=== PATIENT | female | born 1995 | race Two or more races ===

== ENCOUNTER 2018-12-15 15:15 | Emergency (ER) | payer BC, MEDICAID ==
[2018-12-15 16:19] LABS: ABS Basophils 0 10^3/ul (0-0.2); ABS Eosinophils 0.1 10^3/ul (0-0.6); ABS Lymphocytes 2.2 10^3/ul (1.0-4.8); ABS Monocytes 0.4 10^3/ul (0-0.8); ABS Neutrophils 6.8 10^3/ul (1.5-7.7); ABS Nucleated RBC 0 10^3/ul; Eosinophil % 1.1 %; Hematocrit 41 % (33-41); Hemoglobin 13.5 g/dL (12.0-16.0); Lymphocyte % 23.4 %; Mean Corpuscular HGB Conc 33 g/dL (31-36); Mean Corpuscular Hemoglobin 30 pg (27-31); Mean Corpuscular Volume 92 fL (80-97); Mean Platelet Volume 9.3 fL (7.4-10.4); Nucleated Red Blood Cells % 0; Platelet Count 269 10^3/uL (150-450); Red Blood Count 4.49 10^6 /uL (3.70-4.87); Red Cell Distribution Width 13 % (10.5-15); White Blood Count 9.6 10^3/uL (3.5-10.8)
[2018-12-15 16:35] LABS: ALT 13 U/L (7-52); AST 16 U/L (13-39); Albumin 4.5 g/dL (3.2-5.2); Albumin/Globulin Ratio 1.4 (1-3); Alkaline Phosphatase 63 U/L (34-104); Anion Gap 4 mmol/L (2-11); Blood Urea Nitrogen 19 mg/dL (6-24); C Reactive Protein 2.82 mg/L (<8.01); CO2 Carbon Dioxide 30 mmol/L (22-32); Calcium 9.4 mg/dL (8.6-10.3); Chloride 106 mmol/L (101-111); EGFR African American 116.2 (>60); EGFR Non-African American 96.1 (>60); Globulin 3.3 g/dL (2-4); Glucose 95 mg/dL (70-100); Sodium 140 mmol/L (135-145); Total Protein 7.8 g/dL (6.4-8.9)
[2018-12-15 16:36] LABS: INR 1.02 (0.82-1.09)
[2018-12-15 16:39] LABS: HCG Pregnancy < 0.60 mIU/mL
--- NOTE | 2018-12-15 17:19 | ED ---
GI/ HPI - HPI Summary HPI Summary: Pt is a 23 y/o female who presents to the ED c/o hematochezia. 4 days ago she began having lower abdominal pain and hematochezia, described as bright red blood with clumps. 2 days ago she began to also have chills and N/V, and also c/o anxiety, sleep disturbance, and intermittent dysuria. She denies any diarrhea or fever. Pain is rated a 7/10 in severity and is made worse with BMs. Pt is having about two BMs per day. She notes that shes had a hx of rectal bleeding due to prior trauma to the area, however this is worse than usual. She denies any recent antibiotic or diet change. - History of Current Complaint Chief Complaint: EDAbdPain Time Seen by Provider: 12/15/18 17:11 Stated Complaint: GI BLEED PER PT Hx Obtained From: Patient Hx Last Menstrual Period: NEXPLANON Onset/Duration: Started Days Ago - 4, Still Present Timing: Constant Current Severity: Moderate Pain Intensity: 7 Location of Pain: Other - lower abdomen Associated Signs and Symptoms: Positive: Nausea, Vomiting, Bright Red Blood w/ Stool, Chills, Abdominal Pain. Negative: Diarrhea, Fever Alleviating Factor(s): Nothing - Allergy/Home Medications Allergies/Adverse Reactions: Allergies Allergy/AdvReac Type Severity Reaction Status Date / Time oxycodone Allergy Altered Verified 12/15/18 16:37 Mental Status PMH/Surg Hx/FS Hx/Imm Hx Endocrine/Hematology History: Denies: Hx Diabetes Cardiovascular History: Reports: Hx Congenital Heart Disease Denies: Hx Hypertension History: Denies: Hx Renal Disease Sensory History: Reports: Hx Contacts or Glasses Opthamlomology History: Reports: Hx Contacts or Glasses Psychiatric History: Reports: Hx Anxiety, Hx Depression, Hx Post Traumatic Stress Disorder, Hx Inpatient Treatment, Other Psychiatric Issues/Disorders - reactive attachment disorder and unspecified mood disorders Denies: Hx Eating Disorder, Hx of Violent Episodes Against Others - Immunization History Date of Tetanus Vaccine: Unk Date of Influenza Vaccine: None Infectious Disease History: No Infectious Disease History: Reports: History Other Infectious Disease - +TB TEST Denies: Traveled Outside the [place] in Last 30 Days - Family History Known Family History: Positive: Unknown - unknown due to adoption - Social History Alcohol Use: Occasionally Hx Substance Use: Yes Substance Use Type: Reports: Marijuana Hx Tobacco Use: Yes Smoking Status (MU): Light Every Day Tobacco Smoker Review of Systems Positive: Chills, Other - sleep disturbance. Negative: Fever Positive: Abdominal Pain, Vomiting, Nausea, Other - hematochezia. Negative: Diarrhea Positive: dysuria - intermittent Positive: Anxious All Other Systems Reviewed And Are Negative: Yes Physical Exam - Summary Physical Exam Summary: Appearance: well appearing, no pain distress Skin: warm, dry, reflects adequate perfusion Head/face: normal Eyes: EOMI, VIDYA ENT: mucous membranes moist Neck: supple, non-tender Respiratory: CTA, breath sounds present Cardiovascular: RRR, pulses symmetrical Abdomen: diffuse tenderness, soft Bowel Sounds: present Musculoskeletal: normal, strength/ROM intact Neuro: normal, sensory motor intact, A&Ox3 Rectal: small external hemorrhoid on 12 oclock position with adjacent fissure Triage Information Reviewed: Yes Vital Signs On Initial Exam: Initial Vitals Temp Pulse Resp BP Pulse Ox 97.2 F 79 18 145/70 99 12/15/18 15:23 12/15/18 15:23 12/15/18 15:23 12/15/18 15:23 12/15/18 15:23 Vital Signs Reviewed: Yes Diagnostics - Vital Signs Vital Signs Temp Pulse Resp BP Pulse Ox 12/15/18 16:34 98.5 F 89 18 103/80 99 12/15/18 15:23 97.2 F 79 18 145/70 99 - Laboratory Lab Results: Lab Results 12/15/18 12/15/18 12/15/18 Range/Units 15:48 15:48 15:48 WBC 9.6 (3.5-10.8) 10^3/uL RBC 4.49 (3.70-4.87) 10^6 /uL Hgb 13.5 (12.0-16.0) g/dL Hct 41 (33-41) % MCV 92 (80-97) fL MCH 30 (27-31) pg MCHC 33 (31-36) g/dL RDW 13 (10.5-15) % Plt Count 269 (150-450) 10^3/uL MPV 9.3 (7.4-10.4) fL Neut % (Auto) 70.5 % Lymph % (Auto) 23.4 % [place] % (Auto) 4.7 % Eos % (Auto) 1.1 % Baso % (Auto) 0.3 % Absolute Neuts (auto) 6.8 (1.5-7.7) 10^3/ul Absolute Lymphs (auto) 2.2 (1.0-4.8) 10^3/ul Absolute Monos (auto) 0.4 (0-0.8) 10^3/ul Absolute Eos (auto) 0.1 (0-0.6) 10^3/ul Absolute Basos (auto) 0 (0-0.2) 10^3/ul Absolute Nucleated RBC 0 10^3/ul Nucleated RBC % 0 INR (Anticoag Therapy) (0.82-1.09) Sodium 140 (135-145) mmol/L Potassium 4.0 (3.5-5.0) mmol/L Chloride 106 (101-111) mmol/L Carbon Dioxide 30 (22-32) mmol/L Anion Gap 4 (2-11) mmol/L BUN 19 (6-24) mg/dL Creatinine 0.76 (0.51-0.95) mg/dL Est GFR ( Amer) 116.2 (>60) Est GFR (Non-Af Amer) 96.1 (>60) BUN/Creatinine Ratio 25.0 H (8-20) Glucose 95 (70-100) mg/dL Lactic Acid 0.4 L (0.5-2.0) mmol/L Calcium 9.4 (8.6-10.3) mg/dL Total Bilirubin 0.40 (0.2-1.0) mg/dL AST 16 (13-39) U/L ALT 13 (7-52) U/L Alkaline Phosphatase 63 (34-104) U/L C-Reactive Protein 2.82 (<8.01) mg/L Total Protein 7.8 (6.4-8.9) g/dL Albumin 4.5 (3.2-5.2) g/dL Globulin 3.3 (2-4) g/dL Albumin/Globulin Ratio 1.4 (1-3) Lipase 13 (11.0-82.0) U/L Beta HCG, Quant < 0.60 mIU/mL 12/15/18 Range/Units 15:48 WBC (3.5-10.8) 10^3/uL RBC (3.70-4.87) 10^6 /uL Hgb (12.0-16.0) g/dL Hct (33-41) % MCV (80-97) fL MCH (27-31) pg MCHC (31-36) g/dL RDW (10.5-15) % Plt Count (150-450) 10^3/uL MPV (7.4-10.4) fL Neut % (Auto) % Lymph % (Auto) % [place] % (Auto) % Eos % (Auto) % Baso % (Auto) % Absolute Neuts (auto) (1.5-7.7) 10^3/ul Absolute Lymphs (auto) (1.0-4.8) 10^3/ul Absolute Monos (auto) (0-0.8) 10^3/ul Absolute Eos (auto) (0-0.6) 10^3/ul Absolute Basos (auto) (0-0.2) 10^3/ul Absolute Nucleated RBC 10^3/ul Nucleated RBC % INR (Anticoag Therapy) 1.02 (0.82-1.09) Sodium (135-145) mmol/L Potassium (3.5-5.0) mmol/L Chloride (101-111) mmol/L Carbon Dioxide (22-32) mmol/L Anion Gap (2-11) mmol/L BUN (6-24) mg/dL Creatinine (0.51-0.95) mg/dL Est GFR ( Amer) (>60) Est GFR (Non-Af Amer) (>60) BUN/Creatinine Ratio (8-20) Glucose (70-100) mg/dL Lactic Acid (0.5-2.0) mmol/L Calcium (8.6-10.3) mg/dL Total Bilirubin (0.2-1.0) mg/dL AST (13-39) U/L ALT (7-52) U/L Alkaline Phosphatase (34-104) U/L C-Reactive Protein (<8.01) mg/L Total Protein (6.4-8.9) g/dL Albumin (3.2-5.2) g/dL Globulin (2-4) g/dL Albumin/Globulin Ratio (1-3) Lipase (11.0-82.0) U/L Beta HCG, Quant mIU/mL Result Diagrams: 12/15/18 15:48 12/15/18 15:48 Lab Statement: Any lab studies that have been ordered have been reviewed, and results considered in the medical decision making process. GIGU Course/Dx - Course Course Of Treatment: Patient with a small amount of hematochezia. She has a anal fissure seen on exam as well as a small noninflamed hemorrhoid. The hemorrhoid doesn't look like it bled. There is no focality to her abdominal exam but has generalized mild tenderness. There is no pain in the right lower quadrant. Her laboratories are entirely benign. She was given Anusol and lidocaine jelly for discomfort. She'll follow up with her primary care physician for reevaluation as the symptoms could be potentially caused by IBD. - Diagnoses Differential Diagnoses - Female: Other - Gastroenteritis, rectal fissure, external/internal hemorrhoid, IBD Provider Diagnoses: Rectal bleeding, Anal fissure Discharge - Sign-Out/Discharge Documenting (check all that apply): Patient Departure - Discharge Patient Received Moderate/Deep Sedation with Procedure: No - Discharge Plan Condition: Improved Disposition: HOME Prescriptions: Hydrocortisone SUPP* [Anusol HC Supp*] 25 mg IA BID #10 supp Lidocaine 2% JELLY* 1 applic TOPICAL TID PRN #1 tube PRN Reason: rectal pain Patient Education Materials: Anal Fissure (ED) Forms: *Work Release Referrals: Denise Gaitan [Primary Care Provider] - Additional Instructions: Call in the Morning to schedule follow-up with her primary care physician. Anal fissures if recurrent can be a sign of more chronic GI conditions such as Crohn's disease or colitis. Have your doctor do further testing. Return if worse, new symptoms or other concerns. - Billing Disposition and Condition Condition: IMPROVED Disposition: Home - Attestation Statements Document Initiated by Scribe: Yes Documenting Scribe: Dana Cano Provider For Whom Treva is Documenting (Include Credential): Raiz De MD Scribe Attestation: Dana Barron, scribed for Riaz De MD on 12/15/18 at 1901. Scribe Documentation Reviewed: Yes Provider Attestation: The documentation as recorded by the Dana tolentino accurately reflects the service I personally performed and the decisions made by me, Riaz De MD Status of Scribe Document: Viewed
[2018-12-15 17:26] LABS: Urine Appearance Clear; Urine Bacteria Absent (Absent); Urine Bilirubin Negative (Negative); Urine Blood Negative (Negative); Urine Color Yellow; Urine Glucose Negative (Negative); Urine Ketones Negative (Negative); Urine Nitrite Negative (Negative); Urine Protein Negative (Negative); Urine Red Blood Cell Trace(0-2/hpf) (Absent); Urine Specific Gravity 1.028 (1.010-1.030); Urine Squamous Epithelial Cell Present (Absent); Urine Urobilinogen Negative (Negative); Urine White Blood Cell Trace(0-5/hpf) (Absent)
[2018-12-15 17:34] VITALS: BP 127/84
== END 2018-12-15 17:50 | disposition home or self-care (01) ==
LOC: ED 15:15
DX: K62.5 Hemorrhage of anus and rectum (principal); K60.2 Anal fissure, unspecified; Q24.9 Congenital malformation of heart, unspecified; F41.9 Anxiety disorder, unspecified; F32.9 Major depressive disorder, single episode, unspecified; F43.12 Post-traumatic stress disorder, chronic; F17.210 Nicotine dependence, cigarettes, uncomplicated; Z88.5 Allergy status to narcotic agent
CPT/HCPCS: 36415; 80053; 81003; 81015; 83605; 83690; 84702; 85025; 85610; 86140; 87086; 99282

== ENCOUNTER 2019-03-21 13:16 | Emergency (ER) | payer BC, MEDICAID ==
--- OUTSIDE RECORDS SUMMARY | 2019-03-21 13:23 | XMS REPORT | Continuity of Care Document ---
:1995 External Reference #:[id number] Author Name Ton Ray D.O. Address [address] [place] [id number] Care Team Providers Name Role Phone Ton Ray D.O. 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 Onset: 03/09/2013 Slow transit constipation Denise Apodaca PA Onset: 03/13/2016 Family History Date Family Member(s) Observation Comments Father Diabetes, Nos Father Stroke Father Asthma Mother Asthma Mother Diabetes, Nos Number of Siblings 1 sister First Brother Asthma Social History Type Date Description Comments Sex Unknown Home Environment Lives in a 2 level home and lives in a new house. Uses forced air, natural gas and wood heating. Has a window air conditioner. The floors are carpeted and wood. There are draperies in the home. Does not use air cleanersuses humidifier in winter Diet Diet is healthy and well balanced Sleep Typically sleeps 10 hours a night Pets Household pets include several dogs Abuse Mother States Past HX Tobacco Use Start: Unknown current cigarette smoker also vapes Tobacco Use Reviewed: 03/13/16 Patient has never smoked Recreational Drug Use Denies Drug Use Smoking Status Reviewed: 03/13/16 Patient has never smoked Exercise Type/Frequency Child Does Play School Current Sports Sun Exposure Minimum amount of sun exposure. Uses sunscreen Seat Belt/Car Seat Always uses a seat belt Bike Helmet Patient always wears a bike helmet Guns in Home There are guns in the home and the guns are locked up Smoke Alarms There are smoke alarms in the house Recent Travel There has not been recent travel abroad Currently Active The patient is currently sexually active Father's Occupation Entry Rep Mother's Occupation [employer] R[employer] Oncology Child Social Hx biological fa unknown Child Social Hx biological mo hx unknown Allergies, Adverse Reactions, Alerts Active Allergies Reaction Severity Comments Date Oxycodone Percocet 03/13/2016 Inactive Allergies NKDA 09/19/2005 NKDA 03/13/2016 Medications Active Medications SIG Qnty Indications Ordering Date Provider Amoxicillin 1 three times a day 30tabs Silco, 08/08/2018 500mg a day x 10 days for Sally Chang Tablets pharyngitis Triamcinolone apply thin layer to 30gm Silco, 07/04/2018 Acetonide rash 2-3 times a Sally Chang 0.5% Cream day Nexplanon Unknown 68mg Implant History Medications Valacyclovir HCL 1 three times a day 21tabs Silco, 07/04/2018 - for 7 days for rash Sally Chang 07/19/2018 1gm Tablets Fluconazole 1 tabs by mouth one 1tabs B37.3 Silcoff, 12/30/2017 - 150mg time Sally Chang 12/31/2017 Tablets Escitalopram 1 tab every morning 60tabs F43.21 Silco, 12/30/2017 - Oxalate for depression x 3 Sally Chang 06/29/2018 5mg Tablets days, if tolerating, increase to two tabs in the morning Plan B One-Step one 0.75 mg tablet 2tabs N92.6 Silco, 12/09/2017 - w/n 72 hours of Sally Chang 12/16/2017 1.5mg Tablets unprotected sexual intercourse; second 0.75 mg tablet 12 hours later Ondansetron HCL 1 three times a day, 6tabs Silcoff, 12/09/2017 - 4mg as needed for severe Sally Chang 12/29/2017 Tablets nausea Metronidazole 1 bid x 7 days 14tabs N92.6 Silcojaiden, 12/09/2017 - 500mg Sally Chang 12/29/2017 Tablets Doxycycline Hyclate 1 twice a day x 14 28tabs N92.6 Silcoff, 12/09/2017 - days Sally Chang 12/29/2017 100mg Tablets Metrogel-Vaginal 1 applicatorful by 70gm N76.0 Kaleb, 08/27/2017 - way of vagina every Sally Chang 12/08/2017 0.75% Gel night at bedtime x5 days Omeprazole 1 by mouth every day 30caps K21.9 Kaleb, 07/08/2017 - 20mg Sally Chang 08/26/[address] Flora take 1 tablet by 14tabs N76.0 Denise Apodaca, 02/25/2017 - 500mg mouth two times a PA 03/04/2017 Tablets day for 7 days Meclizine HCL 1 tab by mouth three 90tabs R42 Denise Apodaca, 02/25/2017 - 25mg times a day as PA 12/09/2017 Tablets needed dizziness Metrogel-Vaginal 1 applicatorful by 70gm Denise Apodaca, 02/04/2017 - way of vagina every PA 02/04/2017 0.75% Gel night at bedtime x5 days Fluconazole 1 tab by mouth once 1tabs N76.0 Denise Apodaca, 01/30/2017 - 150mg for yeast infection PA 02/01/2017 Tablets Amoxicillin 2 cap by mouth twice 40caps J02.9 Cory, 09/27/2016 - 500mg a day x 10 days Ton D.OCamilla 10/07/2016 Capsules Amoxicillin 1 tab by mouth twice 20tabs J02.0 Denise Apodaca, 05/22/2016 - 875mg a day x10 days PA 06/01/2016 Tablets No Active Unknown 03/13/2016 - Medications 03/13/2016 Colace 1 cap by mouth twice 60caps K64.5 Denise Apodaca, 03/13/2016 - 100mg a day PA 01/29/2017 Capsules Proctosol HC apply to hemorrhoids 28.350gm K64.5 Denise Apodaca, 2015 - 2.5% twice a day as PA 01/29/2017 Cream needed Amoxicillin 2 tab po bid x 10d 40tabs 381.4 Kaleb, 09/08/2013 - 500mg Sally Chang 09/18/2013 Tablets Flonase 1-2 intranasal 1units 461.0 Marquisdianna, 03/09/2013 - 50mcg/Act Ton D.OCamilla 08/19/2013 Suspension Depo-Provera Please dispense for 1ml Herve Dietrich 02/13/2013 - Contraceptive administration at Sally Durham 09/21/2014 dfm 150mg/ml Suspension Cephalexin 1 po bid x7 days 14tabs 682.8 Kaleb, 05/01/2012 - 500mg Sally Chang 05/14/2012 Tablets Polyethylene Glycol use 1 cap full in 8 527gm 564.01 Herve Dietrich 2011 - 3350 oz of water every Sally Durham 06/29/2012 3350NF Powder day; may increase to 2 caps as needed Lexapro 1 qd samplesgi Unknown 09/28/2011 - 10mg 09/28/2012 Tablets Cephalexin 1 tablet bid x 7 14caps 681.11 Kaleb, 03/30/2011 - 500mg days Sally Chang 04/06/2011 Capsules Abilify 1 qd 296.99 Unknown 03/29/2011 - 10mg 03/29/2012 Tablets Anusol-HC apply to affected 45gm 565.0 Herve Dietrich 11/05/2010 - 2.5% area tid for ten Sally Durham 12/05/2010 Cream days Naftin apply to area bid 15gm 110.5 Herve Dietrich 06/01/2010 - 1% Cream for 2 weeks Sally Durham 03/31/2012 Concerta 314.00 Unknown 02/10/2009 - 18mg 03/22/2010 Tablets ER Tenex 1/2 in am and 1 in Unknown 02/10/2009 - 1mg Tablets pm 03/21/2010 Multivitamins 1 po qd V20.2 Herve Dietrich 02/10/2009 - Sally Durham 01/20/2012 Tablets Concerta 1 qam 90tabs 314.00 Herve Dietrich 08/15/2008 - 27mg Sally Durham 02/10/2009 Tablets ER code a Concerta 1 qam 90tabs 314.00 Herve Dietrich 07/11/2008 - 36mg Sally Durham 08/15/2008 Tablets ER code b Risperdal O.25 qam and 0.25 QS3Mos 314.00 Herve Dietrich 12/28/2007 - 1mg/ml qpm Sally Durham 09/05/2008 Solution 312.9 Concerta 1 qam 90tabs 314.00 Herve Dietrich 11/30/2007 - 27mg Tablets ER Sally Durham 07/11/2008 code A Concerta 1 qam 30tabs 314.00 Herve Dietrich 11/06/2007 - 27mg Tablets ER Sally Durham 11/30/2007 code A Concerta 1 qd 30tabs 314.00 Herve Dietrich 10/13/2007 - 18mg Tablets ER Sally Durham 11/06/2007 Hydrocortisone Apply To 15gm 782.1 Herve Dietrich 10/13/2007 - 1% Cream Affected Area Sally Durham 10/29/2007 bid Zithromax day one; 9 ml po carlos 11/10/2006 - 200mg/5 ML 02/17/2007 Suspension day two-five 4.5 ml po q day #qs for 5 days Flovent puffs bid 1units 493.10 carlos 11/08/2006 - 110McG/Inhalation 02/09/2009 Aerosol Albuterol Mdi 2 puffs q 4 hrs 1units 493.10 carlos 11/08/2006 - 90McG/Dose prn for SOB 02/09/2009 Aerosol Peak Flow Meter Use First Thing 2units 493.00 Herve Dietrich 03/11/2006 - In Am And prn To Sally Durham 03/31/2012 Monitor Breathing Colace 1 po q day 60caps 455.3 Herve Dietrich 01/15/2006 - 50mg Capsules Sally Durham 06/18/2007 School Note please allow 493.00 carlos 01/15/2006 - patient to 03/01/2006 return to pe and sports Advair Diskus 1 puff bid prn 1units 493.00 Herve Dietrich 01/09/2006 - only Sally Durham 03/18/2006 500mcg;50mcg Inhaler Albuterol Mdi 2 puffs q 4 hrs 2units 493.00 carlos 01/09/2006 - 90mcg/Dose prn for SOB 03/19/2006 Aerosol 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 Amoxicillin 3 taken one hour 30tabs 745.61 Herve Dietrich 11/01/2005 - 500mg Tablets before dental Sally Durham 11/21/2005 care Bike Helmet please wear one V20.2 Herve Dietrich 09/19/2005 - every time you Sally Durham 09/23/2006 use your bike Risperdal bid 314.00 Herve Dietrich - 0.25mg Tablets Sally Durham 06/23/2007 Fluoride 1 po qd 90units V20.2 Unknown - 0.5mg Chewtabs 03/22/2010 Abilify 2 tablets po Unknown - 10mg Tablets every other day 03/22/2010 Concerta 2 po qam 314.00 Unknown - 36mg Tablets ER 01/21/2012 Lexapro 1 tab by mouth 30tabs Denise Apodaca, - 20mg Tablets every day PA 01/29/2017 Medications Administered in Office Medication SIG Qnty Indications Ordering Provider Date SC/Im Injections Nurse's Schedule 12/31/2013 Injection SC/Im Injections Herve Durham M.D. 09/27/2013 Injection SC/Im Injections Nurse's Schedule 06/28/2013 Injection SC/Im Injections Nurse's Schedule 12/01/2012 Injection SC/Im Injections Nurse's Schedule 09/02/2012 Injection SC/Im Injections Nurse's Schedule 04/23/2012 Injection H1N1 Swine Flu Vaccine Nurse's Schedule 08/16/2009 Injection Immunizations CPT Code Status Date Vaccine Lot # [id number] Given 07/20/2018 Influenza Virus Vaccine, Quadrivalent, Split, [id number] Preservative Free 28864 Given 05/28/2017 Influenza Virus Vaccine, Quadrivalent, Split, [id number] Preservative Free 89332 Given 06/28/2013 Flu, Split Virus 3Yrs [id number] 53449 Given 04/01/2013 Menactra Menningitis Vaccine [id number] 92733 Given 04/23/2012 Flu, Split Virus 3Yrs [id number] 06519 Given 09/30/2011 Hep A, Ped/Adolscent, 2 Dose [id number] 72577 Given 06/06/2011 Flu, Split Virus 3Yrs [id number] 29911 Given 03/30/2011 Hep A, Adult [id number] 00259 Given 06/01/2010 Flu, Split Virus 3Yrs [id number] 65052 Given 08/16/2009 Flu, Split Virus 3Yrs [id number] 38126 Given 05/05/2009 Gardasil HPV vaccine [id number] 81365 Given 05/05/2009 Varicella (Chicken Pox) Immunization [id number] 97780 Given 01/06/2009 Gardasil HPV vaccine [id number] 88320 Given 06/13/2008 Flu, Split Virus 3Yrs [id number] 85447 Given 03/21/2008 Menactra Menningitis Vaccine [id number] 35677 Given 03/21/2008 Gardasil HPV vaccine [id number] 22496 Given 12/28/2007 Adacel or Boostrix, TDaP [id number] 97779 Given 06/23/2007 Flu, Split Virus 3Yrs 98003 Given 07/07/2006 Flu, Split Virus 3Yrs 86607 Given 08/20/2004 Flu, Split Virus 3Yrs 79301 Given 06/08/2003 Flu, Split Virus 3Yrs 58498 Given 10/18/2002 Flu, Split Virus 3Yrs 68104 Given 09/01/2002 Flu, Split Virus 3Yrs 64165 Given 02/24/2002 Poliomyelitis Immunization 32342 Given 02/24/2002 MMR Virus Immunization 18443 Given 02/24/2002 Dtap Immunization (Tripedia) (Infanrix) 31976 Given 11/07/2000 Prevnar (Pneumococcal Conjugate) 16918 Given 05/01/1998 Hepatitis B Immunization 10461 Given 05/01/1998 Dtap Immunization (Tripedia) (Infanrix) 61780 Given 05/01/1998 Hib,HbOC,4 Dose Schedule 22979 Given 02/06/1998 Varicella (Chicken Pox) Immunization 15073 Given 02/06/1998 MMR Virus Immunization 54894 Given 1997 Hib,HbOC,4 Dose Schedule 45558 Given 1997 Dtap Immunization (Tripedia) (Infanrix) 93099 Given 1997 Oral Poliovirus Immunization 43097 Given 1997 Oral Poliovirus Immunization 11716 Given 1997 Dtap Immunization (Tripedia) (Infanrix) 92373 Given 1997 Hib,HbOC,4 Dose Schedule 22754 Given 1997 Hepatitis B Immunization 91693 Given 1997 Oral Poliovirus Immunization 98744 Given 1997 Dtap Immunization (Tripedia) (Infanrix) 91899 Given 1997 Hib,HbOC,4 Dose Schedule 91513 Given 1997 Hepatitis B Immunization Vital Signs Date Vital Result Comment 08/08/2018 10:19am BP Systolic 108 mmHg BP Diastolic 70 mmHg Body Temperature 98.9 F 07/20/2018 3:33pm BP Systolic 110 mmHg BP Diastolic 60 mmHg Heart Rate 86 /min O2 % BldC Oximetry 97 % Weight 216.00 lb 06/29/2018 1:30pm BP Systolic 110 mmHg BP Diastolic 60 mmHg Height 62 inches Weight 210.00 lb BMI (Body Mass Index) 38.4 kg/m2 12/30/2017 11:23am BP Systolic 114 mmHg BP Diastolic 62 mmHg Weight 210.00 lb 12/09/2017 4:36pm BP Systolic 120 mmHg BP Diastolic 68 mmHg Body Temperature 98.5 F Height 62 inches 5'2" with sneakers Weight 206.00 lb with sneakers BMI (Body Mass Index) 37.7 kg/m2 08/27/2017 4:40pm BP Systolic 102 mmHg BP Diastolic 60 mmHg Body Temperature 98.8 F Weight 213.00 lb 07/08/2017 2:09pm BP Systolic 97 mmHg BP Diastolic 40 mmHg Heart Rate 76 /min Body Temperature 98.0 F 06/26/2017 3:32pm BP Systolic 116 mmHg BP Diastolic 58 mmHg Body Temperature 98.7 F Weight 209.00 lb 05/28/2017 3:53pm BP Systolic 116 mmHg BP Diastolic 70 mmHg 04/25/2017 12:04pm Body Temperature 98.6 F 02/25/2017 1:54pm BP Systolic 102 mmHg BP Diastolic 60 mmHg Body Temperature 98.5 F Height 62 inches 5'2" Weight 204.00 lb BMI (Body Mass Index) 37.3 kg/m2 01/30/2017 4:24pm BP Systolic 110 mmHg BP Diastolic 60 mmHg Weight 209.00 lb with shoes 09/27/2016 12:37pm BP Systolic 104 mmHg right arm BP Diastolic 60 mmHg right arm Body Temperature 100.1 F 05/22/2016 5:27pm BP Systolic 118 mmHg BP Diastolic 62 mmHg Heart Rate 100 /min Weight 190.00 lb 03/13/2016 11:07am BP Systolic 110 mmHg BP Diastolic 62 mmHg Height 62 inches 5'2" Weight 182.00 lb w/shoes BMI (Body Mass Index) 33.3 kg/m2 09/27/2013 3:38pm BP Systolic 122 mmHg BP Diastolic 68 mmHg Height 63 inches 5'3" W/Shoes Weight 183.00 lb BMI (Body Mass Index) 32.4 kg/m2 Body Mass Index Percentile 97 % 09/08/2013 9:49am BP Systolic 110 mmHg BP Diastolic 58 mmHg Body Temperature 99.4 F Weight 180.00 lb 04/01/2013 2:02pm BP Systolic 98 mmHg BP Diastolic 54 mmHg Heart Rate 80 /min Respiratory Rate 17 /min Height 62 inches 5'2" Weight 172.00 lb BMI (Body Mass Index) 31.5 kg/m2 Body Mass Index Percentile 97 % 03/09/2013 9:49am BP Systolic 112 mmHg BP Diastolic 76 mmHg Body Temperature 98.6 F Height 62.5 inches 5'2.50" Weight 177.00 lb BMI (Body Mass Index) 31.9 kg/m2 Body Mass Index Percentile 97 % 09/21/2012 4:30pm BP Systolic 100 mmHg BP Diastolic 70 mmHg Body Temperature 98.4 F 09/02/2012 5:40pm BP Systolic 114 mmHg BP Diastolic 63 mmHg Height 62.50 inches 5'2.50" Weight 171.00 lb BMI (Body Mass Index) 30.8 kg/m2 Body Mass Index Percentile 96 % 05/18/2012 3:47pm BP Systolic 100 mmHg BP Diastolic 60 mmHg 05/06/2012 1:41pm BP Systolic 110 mmHg BP Diastolic 54 mmHg Heart Rate 75 /min Body Temperature 98.2 F 05/01/2012 4:02pm BP Systolic 104 mmHg BP Diastolic 61 mmHg Heart Rate 85 /min Body Temperature 98.6 F Weight 154.00 lb Last Menstrual Period 0 04/23/2012 5:00pm BP Systolic 108 mmHg BP Diastolic 78 mmHg Weight 152.00 lb 03/31/2012 3:07pm BP Systolic 110 mmHg BP Diastolic 70 mmHg Height 62.50 inches 5'2.50" Weight 153.00 lb BMI (Body Mass Index) 27.5 kg/m2 Body Mass Index Percentile 94 % 02/25/2012 4:41pm BP Systolic 118 mmHg BP Diastolic 72 mmHg Body Temperature 98.7 F Weight 151.00 lb Last Menstrual Period 0 01/23/2012 4:04pm BP Systolic 104 mmHg BP Diastolic 52 mmHg Heart Rate 75 /min Height 62 inches 5'2" Weight 142.00 lb BMI (Body Mass Index) 26.0 kg/m2 Last Menstrual Period 0 Body Mass Index Percentile 91 % 09/30/2011 4:08pm BP Systolic 108 mmHg BP Diastolic 60 mmHg Heart Rate 80 /min Respiratory Rate 16 /min Height 62.5 inches 5'2.50" Weight 132.00 lb BMI (Body Mass Index) 23.8 kg/m2 Body Mass Index Percentile 84 % 08/29/2011 3:33pm BP Systolic 96 mmHg BP Diastolic 60 mmHg 08/23/2011 2:46pm BP Systolic 110 mmHg BP Diastolic 54 mmHg Weight 129.00 lb 03/30/2011 9:11am BP Systolic 97 mmHg BP Diastolic 81 mmHg Heart Rate 95 /min Height 62 inches 5'2" Weight 132.00 lb BMI (Body Mass Index) 24.1 kg/m2 Body Mass Index Percentile 87 % 11/05/2010 4:45pm BP Systolic 114 mmHg BP Diastolic 66 mmHg Body Temperature 98.5 F Height 61.50 inches 5'1.50" Weight 118.00 lb BMI (Body Mass Index) 21.9 kg/m2 Last Menstrual Period 0 Body Mass Index Percentile 78 % 08/16/2010 9:52am BP Systolic 112 mmHg BP Diastolic 58 mmHg Heart Rate 90 /min Height 62 inches 5'2" Weight 123.00 lb BMI (Body Mass Index) 22.5 kg/m2 Last Menstrual Period [id number] Body Mass Index Percentile 82 % 03/22/2010 3:24pm BP Systolic 118 mmHg BP Diastolic 56 mmHg Heart Rate 80 /min Respiratory Rate 16 /min Height 60.75 inches 5'0.75" Weight 110.00 lb BMI (Body Mass Index) 21.0 kg/m2 Last Menstrual Period 0 Body Mass Index Percentile 74 % 05/20/2009 11:16am Body Temperature 98.5 F Weight 108.00 lb 02/10/2009 9:26am BP Systolic 94 mmHg BP Diastolic 52 mmHg Heart Rate 80 /min Respiratory Rate 17 /min Height 59.50 inches 4'11.50" Weight 103.00 lb BMI (Body Mass Index) 20.5 kg/m2 Body Mass Index Percentile 79 % 10/06/2008 1:12pm BP Systolic 118 mmHg BP Diastolic 64 mmHg Heart Rate 70 /min Respiratory Rate 16 /min Height 58 inches 4'10" Weight 110.00 lb BMI (Body Mass Index) 23.0 kg/m2 Last Menstrual Period 0 Body Mass Index Percentile 95 % 10/06/2008 1:12pm BP Systolic 118 mmHg BP Diastolic 64 mmHg Height 58 inches 4'10" Weight 110.00 lb BMI (Body Mass Index) 23.0 kg/m2 Last Menstrual Period 0 Body Mass Index Percentile 95 % 06/13/2008 4:01pm BP Systolic 112 mmHg BP Diastolic 60 mmHg Height 57 inches 4'9" Weight 106.00 lb BMI (Body Mass Index) 22.9 kg/m2 Last Menstrual Period 0 Body Mass Index Percentile 96 % 03/21/2008 1:13pm BP Systolic 106 mmHg BP Diastolic 48 mmHg Heart Rate 80 /min Respiratory Rate 16 /min Height 56.9 inches 4'8.90" Weight 102.00 lb BMI (Body Mass Index) 22.1 kg/m2 Last Menstrual Period 0 Body Mass Index Percentile 94 % 12/28/2007 3:40pm BP Systolic 106 mmHg BP Diastolic 62 mmHg Heart Rate 70 /min Respiratory Rate 16 /min Height 55.9 inches 4'7.90" Weight 101.00 lb BMI (Body Mass Index) 22.7 kg/m2 Last Menstrual Period 0 Body Mass Index Percentile 97 % 11/06/2007 10:16am BP Systolic 110 mmHg BP Diastolic 58 mmHg Heart Rate 70 /min Height 55.6 inches 4'7.60" Weight 98.00 lb BMI (Body Mass Index) 22.3 kg/m2 Last Menstrual Period 0 Body Mass Index Percentile 97 % 10/13/2007 2:55pm BP Systolic 104 mmHg BP Diastolic 54 mmHg Height 56 inches 4'8" Weight 102.00 lb BMI (Body Mass Index) 22.9 kg/m2 Body Mass Index Percentile 97 % 09/14/2007 9:08am BP Systolic 108 mmHg BP Diastolic 60 mmHg Height 55.6 inches 4'7.60" Weight 99.00 lb BMI (Body Mass Index) 22.5 kg/m2 Last Menstrual Period 0 Body Mass Index Percentile 97 % 06/23/2007 4:13pm BP Systolic 110 mmHg BP Diastolic 60 mmHg Height 54.9 inches 4'6.90" Weight 93.00 lb BMI (Body Mass Index) 21.7 kg/m2 Last Menstrual Period 0 Body Mass Index Percentile 95 % 04/09/2007 1:29pm BP Systolic 100 mmHg BP Diastolic 58 mmHg Heart Rate 80 /min Respiratory Rate 16 /min Height 54.6 inches 4'6.60" Weight 90.00 lb BMI (Body Mass Index) 21.2 kg/m2 Body Mass Index Percentile 94 % 02/07/2007 10:35am BP Systolic 88 mmHg BP Diastolic 50 mmHg Body Temperature 98.6 F Height 53.5 inches 4'5.50" Weight 87.00 lb BMI (Body Mass Index) 21.4 kg/m2 Body Mass Index Percentile 95 % 11/08/2006 11:16am BP Systolic 90 mmHg BP Diastolic 60 mmHg Body Temperature 98.3 F Weight 85.00 lb 09/23/2006 1:41pm Height 53 inches 4'5" Weight 85.00 lb BMI (Body Mass Index) 21.3 kg/m2 Last Menstrual Period 0 Body Mass Index Percentile 95 % 03/11/2006 1:46pm BP Systolic 90 mmHg BP Diastolic 62 mmHg Respiratory Rate 16 /min Weight 76.00 lb 03/01/2006 10:46am Body Temperature 97.8 F Weight 76.00 lb 01/15/2006 4:14pm BP Systolic 96 mmHg BP Diastolic 68 mmHg Height 51.3 inches 4'3.30" Weight 73.00 lb BMI (Body Mass Index) 19.5 kg/m2 Last Menstrual Period 0 Body Mass Index Percentile 92 % 01/09/2006 2:22pm Body Temperature 98.3 F Height 51 inches 4'3" Weight 74.00 lb BMI (Body Mass Index) 20.0 kg/m2 Body Mass Index Percentile 94 % 09/19/2005 1:57pm BP Systolic 88 mmHg BP Diastolic 50 mmHg Heart Rate 80 /min Respiratory Rate 16 /min Height 50.25 inches 4'2.25" Weight 71.50 lb BMI (Body Mass Index) 19.9 kg/m2 Body Mass Index Percentile 95 % 02/11/2005 3:43pm BP Systolic 90 mmHg BP Diastolic 56 mmHg Height 50.7 inches 4'2.70" Weight 65.19 lb BMI (Body Mass Index) 17.8 kg/m2 Body Mass Index Percentile 84 % Results Test Date Facility Test Result H/L Range Note CBC Auto Diff 12/15/2018 [facility] [place] White Blood 9.6 10^3/uL Normal 3.5-10.8 [phone] Count Red Blood Count 4.49 10^6/uL Normal 3.70-4.87 Hemoglobin 13.5 g/dL Normal 12.0-16.0 Hematocrit 41 % Normal 33-41 Mean Corpuscular Volume 92 fL Normal 80-97 Mean Corpuscular Hemoglobin 30 pg Normal 27-31 Mean Corpuscular HGB Conc 33 g/dL Normal 31-36 Red Cell Distribution Width 13 % Normal 10.5-15 Platelet Count 269 10^3/uL Normal 150-450 Mean Platelet Volume 9.3 fL Normal 7.4-10.4 Abs Neutrophils 6.8 10^3/uL Normal 1.5-7.7 Abs Lymphocytes 2.2 10^3/uL Normal 1.0-4.8 Abs Monocytes 0.4 10^3/uL Normal 0-0.8 Abs Eosinophils 0.1 10^3/uL Normal 0-0.6 Abs Basophils 0 10^3/uL Normal 0-0.2 Abs Nucleated RBC 0 10^3/uL Granulocyte % 70.5 % Lymphocyte % 23.4 % Monocyte % 4.7 % Eosinophil % 1.1 % Basophil % 0.3 % Nucleated Red Blood Cells % 0 Comp Metabolic Panel 12/15/2018 [facility] [place] Sodium 140 mmol/L Normal 135-145 [phone] Potassium 4.0 mmol/L Normal 3.5-5.0 Chloride 106 mmol/L Normal 101-111 Co2 Carbon Dioxide 30 mmol/L Normal 22-32 Anion Gap 4 mmol/L Normal 2-11 Glucose 95 mg/dL Normal 70-100 Blood Urea Nitrogen 19 mg/dL Normal 6-24 Creatinine 0.76 mg/dL Normal 0.51-0.95 BUN/Creatinine Ratio 25.0 High 8-20 Calcium 9.4 mg/dL Normal 8.6-10.3 Total Protein 7.8 g/dL Normal 6.4-8.9 Albumin 4.5 g/dL Normal 3.2-5.2 Globulin 3.3 g/dL Normal 2-4 Albumin/Globulin Ratio 1.4 Normal 1-3 Total Bilirubin 0.40 mg/dL Normal 0.2-1.0 Alkaline Phosphatase 63 U/L Normal 34-104 Alt 13 U/L Normal 7-52 Ast 16 U/L Normal 13-39 Egfr Non- 96.1 >60 Egfr 116.2 >60 1 Laboratory test finding 12/15/2018 [facility] [place] Lipase 13 U/L Normal 11.0-82.0 [phone] C Reactive Protein 2.82 mg/L Normal <8.01 HCG < 0.60 mIU/mL 2 Lactic Acid 0.4 mmol/L Low 0.5-2.0 3 Inr/Protime 12/15/2018 [facility] [place] Inr 1.02 Normal 0.82-1.09 4 [phone] Urinalysis Profile 12/15/2018 [facility] [place] Urine Color Yellow [phone] Urine Appearance Clear Urine Specific [place] 1.028 Normal 1.010-1.030 Urine pH 5.0 Normal 5-9 Urine Urobilinogen Negative Negative Urine Ketones Negative Negative Urine Protein Negative Negative Urine Leukocytes 1+ Abnormal Negative Urine Blood Negative Negative Urine Nitrite Negative Negative Urine Bilirubin Negative Negative Urine Glucose Negative Negative Urine White Blood Cell Trace(0-5/hpf) Absent Urine Red Blood Cell Trace(0-2/hpf) Absent Urine Bacteria Absent Absent Urine Squamous Epithelial Cell Present Abnormal Absent Urine Culture And 12/15/2018 [facility] [place] Urine Culture SEE RESULT BELOW 5 Sensitivities [phone] Laboratory test 08/08/2018 In House Culture Throat negative finding Rapid Screen Culture Throat negative Laboratory test finding 12/09/2017 In House Test Urine negative Ua Inhouse 12/09/2017 In House Ua Glucose - 6 Ua Bilirubin - Ua Ketones - Ua Specific [place] 1.030 Ua Blood 3+ Ua PH 6.0 Ua Protein - Ua Urobilinogen - Ua Nitrite - Ua Leukocytes - GC/Chlamydia 12/09/2017 [facility] [place] Chlamydia Negative Negative Amplified Rna [phone] trachomatis Rna Neisseria gonorrhoeae (GC) Rna Negative Negative Laboratory test 08/27/2017 [facility] [place] Culture Genital & SEE RESULT 7 finding [phone] Sensitivity BELOW GC/Chlamydia 08/27/2017 [facility] [place] Chlamydia Negative Negative Amplified Rna [phone] trachomatis Rna Neisseria gonorrhoeae (GC) Rna Negative Negative Ua Inhouse 08/27/2017 In House Ua Glucose - Ua Bilirubin - Ua Ketones - Ua Specific [place] 1.030 Ua Blood tr Ua PH 6.0 Ua Protein - Ua Urobilinogen - Ua Nitrite - Ua Leukocytes - Culture Urine 08/27/2017 In House Colonies no growth Inhouse Laboratory test 08/27/2017 In House Test negative finding Urine Laboratory test 06/24/2017 [facility] [place] Lactic Acid 0.6 mmol/L Normal 0.5-2. 8 finding [phone] Inr/Protime 06/24/2017 [facility] [place] Inr 0.90 Normal 0.89-4 [phone] Laboratory test 06/24/2017 [facility] [place] Partial Thrombo 28.4 seconds Normal 26.0-3 finding [phone] Time PTT 6.3 D Dimer Quantitative < 200 ng/mL Normal Less Than 230 9 CBC Auto Diff 06/24/2017 [facility] [place] White Blood 8.8 10^3/uL Normal 3.5-10.8 [phone] Count Red Blood Count 4.25 10^6/uL Normal 4.0-5.4 Hemoglobin 12.9 g/dL Normal 12.0-16.0 Hematocrit 39 % Normal 35-47 Mean Corpuscular Volume 92 fL Normal 80-97 Mean Corpuscular Hemoglobin 30 pg Normal 27-31 Mean Corpuscular HGB Conc 33 g/dL Normal 31-36 Red Cell Distribution Width 13 % Normal 10.5-15 Platelet Count 267 10^3/uL Normal 150-450 Mean Platelet Volume 9 um3 Normal 7.4-10.4 Abs Neutrophils 5.7 10^3/uL Normal 1.5-7.7 Abs Lymphocytes 2.5 10^3/uL Normal 1.0-4.8 Abs Monocytes 0.4 10^3/uL Normal 0-0.8 Abs Eosinophils 0.2 10^3/uL Normal 0-0.6 Abs Basophils 0.1 10^3/uL Normal 0-0.2 Abs Nucleated RBC 0 10^3/uL Normal Granulocyte % 64.4 % Normal 38-83 Lymphocyte % 28.1 % Normal 25-47 Monocyte % 4.5 % Normal 1-9 Eosinophil % 2.3 % Normal 0-6 Basophil % 0.7 % Normal 0-2 Nucleated Red Blood Cells % 0 Normal Laboratory test 06/24/2017 [facility] [place] Troponin-I (TnI) 0.00 ng/mL Normal <0.04 finding [phone] Comp Metabolic 06/24/2017 [facility] [place] Sodium 137 mmol/L Normal 133- 145 Panel [phone] Potassium 3.9 mmol/L Normal 3.5-5.0 Chloride 106 mmol/L Normal 101-111 Co2 Carbon Dioxide 26 mmol/L Normal 22-32 Anion Gap 5 mmol/L Normal 2-11 Glucose 97 mg/dL Normal 70-100 Blood Urea Nitrogen 18 mg/dL Normal 6-24 Creatinine 0.89 mg/dL Normal 0.51-0.95 BUN/Creatinine Ratio 20.2 High 8-20 Calcium 9.2 mg/dL Normal 8.6-10.3 Total Protein 7.2 g/dL Normal 6.4-8.9 Albumin 3.9 g/dL Normal 3.2-5.2 Globulin 3.3 g/dL Normal 2-4 Albumin/Globulin Ratio 1.2 Normal 1-3 Total Bilirubin 0.20 mg/dL Normal 0.2-1.0 Alkaline Phosphatase 58 U/L Normal 34-104 Alt 14 U/L Normal 7-52 Ast 18 U/L Normal 13-39 Egfr Non- 80.9 Normal >60 Egfr 104.0 Normal >60 10 Laboratory test 06/24/2017 [facility] [place] Magnesium 1.9 mg/dL Normal 1.9- 2.7 finding [phone] Lipase 22 U/L Normal 11.0-82.0 C Reactive Protein 3.25 mg/L Normal < 5.00 11 HCG < 0.60 mIU/mL Normal 12 TSH (Thyroid Stim Horm) 1.03 mcIU/mL Normal 0.34-5.60 Xray 05/28/2017 [facility] X-Ray, Foot, Normal right 13 Right, Complete foot Laboratory test 04/25/2017 In House Culture Throat negative finding Rapid Screen Culture Throat negative Iron & Iron Binding Capacity 02/25/2017 [facility] [place] Iron 95 g/dL Normal 50-212 [phone] Unsaturated Iron Binding 216 g/dL Normal Total Iron Binding Capacity 311 g/dL Normal 250-450 % Iron Saturation 31 % Normal 15-55 Laboratory test 02/25/2017 [facility] [place] Vitamin B12 342 pg/mL Normal 180-914 14 finding [phone] Folic Acid (Folate) 14.30 ng/mL Normal >3.99 CBC Auto Diff 02/25/2017 [facility] [place] White Blood 8.1 10^3/uL Normal 3.5-10.8 [phone] Count Red Blood Count 4.13 10^6/uL Normal 4.0-5.4 Hemoglobin 12.8 g/dL Normal 12.0-16.0 Hematocrit 39 % Normal 35-47 Mean Corpuscular Volume 94 fL Normal 80-97 Mean Corpuscular Hemoglobin 31 pg Normal 27-31 Mean Corpuscular HGB Conc 33 g/dL Normal 31-36 Red Cell Distribution Width 12 % Normal 10.5-15 Platelet Count 245 10^3/uL Normal 150-450 Mean Platelet Volume 10 um3 Normal 7.4-10.4 Abs Neutrophils 5.1 10^3/uL Normal 1.5-7.7 Abs Lymphocytes 2.3 10^3/uL Normal 1.0-4.8 Abs Monocytes 0.5 10^3/uL Normal 0-0.8 Abs Eosinophils 0.2 10^3/uL Normal 0-0.6 Abs Basophils 0 10^3/uL Normal 0-0.2 Abs Nucleated RBC 0.01 10^3/uL Normal Granulocyte % 62.8 % Normal 38-83 Lymphocyte % 28.7 % Normal 25-47 Monocyte % 6.0 % Normal 1-9 Eosinophil % 1.9 % Normal 0-6 Basophil % 0.6 % Normal 0-2 Nucleated Red Blood Cells % 0.1 Normal Comp Metabolic Panel 02/25/2017 [facility] [place] Sodium 141 mmol/L Normal 133-145 [phone] Potassium 3.8 mmol/L Normal 3.5-5.0 Chloride 106 mmol/L Normal 101-111 Co2 Carbon Dioxide 31 mmol/L Normal 22-32 Anion Gap 4 mmol/L Normal 2-11 Glucose 83 mg/dL Normal 70-100 Blood Urea Nitrogen 11 mg/dL Normal 6-24 Creatinine 0.76 mg/dL Normal 0.51-0.95 BUN/Creatinine Ratio 14.5 Normal 8-20 Calcium 9.1 mg/dL Normal 8.6-10.3 Total Protein 6.8 g/dL Normal 6.4-8.9 Albumin 4.0 g/dL Normal 3.2-5.2 Globulin 2.8 g/dL Normal 2-4 Albumin/Globulin Ratio 1.4 Normal 1-3 Total Bilirubin 0.30 mg/dL Normal 0.2-1.0 Alkaline Phosphatase 69 U/L Normal 34-104 Alt 9 U/L Normal 7-52 Ast 15 U/L Normal 13-39 Egfr Non- 97.0 Normal >60 Egfr 124.8 Normal >60 15 Laboratory test 02/25/2017 [facility] [place] TSH (Thyroid 1.24 mcIU/mL Normal 0.34-5.60 finding [phone] Stim Horm) Hemoglobin A1c (Glyco HGB) 5.2 % Normal Less than 6.0 16 Vitamin D Total 25(Oh) 29.6 ng/mL Low 30-50 Cortisol 7.44 g/dL Normal 17 GC/Chlamydia 01/30/2017 [facility] [place] Chlamydia Negative Normal Negative Amplified Rna [phone] trachomatis Rna Neisseria gonorrhoeae (GC) Rna Negative Normal Negative Laboratory test 01/30/2017 [facility] [place] Culture Genital SEE RESULT 18 finding [phone] & Sensitivity BELOW Laboratory test 09/27/2016 In House Culture Throat positive finding Rapid Screen Laboratory test 05/22/2016 In House Culture Throat positive finding Rapid Screen Laboratory test 03/26/2016 [facility] [place] Lactic Acid 1.3 mmol/L Normal 0.5-2 19 finding [phone] Urinalysis 03/26/2016 [facility] [place] Urine Color Yellow Normal Profile [phone] Urine Appearance Clear Normal Urine Specific [place] 1.014 Normal 1.010-1.030 Urine pH 6.0 Normal 5-9 Urine Urobilinogen Negative Normal Negative Urine Ketones Negative Normal Negative Urine Protein Negative Normal Negative Urine Leukocytes Negative Normal Negative Urine Blood Negative Normal Negative Urine Nitrite Negative Normal Negative Urine Bilirubin Negative Normal Negative Urine Glucose Negative Normal Negative Laboratory test 03/26/2016 [facility] [place] Negative Normal Negative 20 finding [phone] (HCG) Urine Blood Culture SEE RESULT BELOW 21 Laboratory test 03/20/2016 [facility] [place] Potassium 4.0 mmol/L Normal 3.5 -5.0 22 finding [phone] Redraw Ast Redraw 36 U/L Normal 13-39 Comp Metabolic Panel 03/20/2016 [facility] [place] Sodium 134 mmol/L Normal 133-145 [phone] Chloride 100 mmol/L Low 101-111 Co2 Carbon Dioxide 27 mmol/L Normal 22-32 Glucose 79 mg/dL Normal 70-100 Blood Urea Nitrogen 13 mg/dL Normal 6-24 Creatinine 0.79 mg/dL Normal 0.51-0.95 BUN/Creatinine Ratio 16.5 Normal 8-20 Calcium 9.3 mg/dL Normal 8.6-10.3 Total Protein 7.8 g/dL Normal 6.4-8.9 Albumin 4.2 g/dL Normal 3.2-5.2 Globulin 3.6 g/dL Normal 2-4 Albumin/Globulin Ratio 1.2 Normal 1-3 Total Bilirubin 0.30 mg/dL Normal 0.2-1.0 Alkaline Phosphatase 91 U/L Normal 34-104 Alt 37 U/L Normal 7-52 Egfr Non- 93.8 Normal >60 Egfr 120.6 Normal >60 23 Potassium TNP mmol/L Normal 3.5-5.0 24 Anion Gap TNP mmol/L Normal 2-11 Ast TNP U/L Normal 13-39 25 CBC Auto Diff 03/20/2016 [facility] [place] White Blood 4.9 10^3/uL Normal 3.5-10.8 [phone] Count Red Blood Count 4.92 10^6/uL Normal 4.0-5.4 Hemoglobin 14.8 g/dL Normal 12.0-16.0 Hematocrit 45 % Normal 35-47 Mean Corpuscular Volume 91 fL Normal 80-97 Mean Corpuscular Hemoglobin 30 pg Normal 27-31 Mean Corpuscular HGB Conc 33 g/dL Normal 31-36 Red Cell Distribution Width 13 % Normal 10.5-15 Platelet Count 190 10^3/uL Normal 150-450 Mean Platelet Volume 10 um3 Normal 7.4-10.4 Abs Neutrophils 3.0 10^3/uL Normal 1.5-7.7 Abs Lymphocytes 1.5 10^3/uL Normal 1.0-4.8 Abs Monocytes 0.4 10^3/uL Normal 0-0.8 Abs Eosinophils 0 10^3/uL Normal 0-0.6 Abs Basophils 0 10^3/uL Normal 0-0.2 Abs Nucleated RBC 0.02 10^3/uL Normal Granulocyte % 61.5 % Normal 38-83 Lymphocyte % 29.5 % Normal 25-47 Monocyte % 7.6 % Normal 1-9 Eosinophil % 0.8 % Normal 0-6 Basophil % 0.6 % Normal 0-2 Nucleated Red Blood Cells % 0.3 Normal Urine Drug 03/20/2016 [facility] [place] Amphetamine Ur None Detected Normal None SCR ED & [phone] Screen Detect Pain Clinic Barbiturates Urine Screen None Detected Normal None Detect Benzodiazepine Urine Screen None Detected Normal None Detect Urine Cannabinoids Screen None Detected Normal None Detect Urine Cocaine Screen None Detected Normal None Detect Urine Opiates Screen None Detected Normal None Detect Urine Phencyclidine Screen None Detected Normal None Detect 26 Urinalysis Profile 03/20/2016 [facility] [place] Urine Color Yellow Normal [phone] Urine Appearance Clear Normal Urine Specific [place] 1.013 Normal 1.010-1.030 Urine pH 6.0 Normal 5-9 Urine Urobilinogen Negative Normal Negative Urine Ketones Negative Normal Negative Urine Protein Negative Normal Negative Urine Leukocytes 3+ Abnormal Negative Urine Blood 1+ Abnormal Negative Urine Nitrite Negative Normal Negative Urine Bilirubin Negative Normal Negative Urine Glucose Negative Normal Negative Urine White Blood Cell 3+(>20/hpf) Abnormal Absent Urine Red Blood Cell 2+(6-10/hpf) Abnormal Absent Urine Bacteria 1+ Abnormal Absent Urine Squamous Epithelial Cell Present Abnormal Absent Laboratory test 03/20/2016 [facility] [place] Lactic Acid 0.7 mmol/L Normal 0.5-2.0 27 finding [phone] Urine Culture And Sensitivities SEE RESULT BELOW 28 Blood Culture SEE RESULT BELOW 29 CBC Auto Diff 11/17/2013 [facility] [place] White Blood 11.3 10^3/uL High 4.8 -10.8 [phone] Count Red Blood Count 4.45 10^6/uL 4.0-5.4 Hemoglobin 13.8 g/dL 12.0-16.0 Hematocrit 40 % 35-47 Mean Corpuscular Volume 90 fL 80-97 Mean Corpuscular Hemoglobin 31 pg 27-31 Mean Corpuscular HGB Conc 35 g/dL 31-36 Red Cell Distribution Width 13 % 10.5-15 Platelet Count 248 10^3/uL 150-450 Mean Platelet Volume 9 um3 7.4-10.4 Abs Neutrophils 8.0 10^3/uL High 1.5-7.7 Abs Lymphocytes 2.6 10^3/uL 1.0-4.8 Abs Monocytes 0.5 10^3/uL 0-0.8 Abs Eosinophils 0.2 10^3/uL 0-0.6 Abs Basophils 0.1 10^3/uL 0-0.2 Abs Nucleated RBC 0.01 10^3/uL Granulocyte % 70.8 % 38-83 Lymphocyte % 22.7 % Low 25-47 Monocyte % 4.7 % 1-9 Eosinophil % 1.4 % 0-6 Basophil % 0.4 % 0-2 Nucleated Red Blood Cells % 0.1 Laboratory test 11/17/2013 [facility] [place] Serum Negative Negative 30 finding [phone] Acetaminophen < 15 g/mL 31 Alcohol < 10 mg/dL <10 Salicylate < 2.50 mg/dL <30 TSH (Thyroid Stimulating Horm) 1.84 IU/mL 0.34-5.60 Comp Metabolic Panel 11/17/2013 [facility] [place] Sodium 139 mmol/L 133- 145 [phone] Potassium 4.0 mmol/L 3.7-5.6 Chloride 108 mmol/L 101-111 Co2 Carbon Dioxide 26 mmol/L 22-32 Anion Gap 5 mmol/L 2-11 Glucose 76 mg/dL 70-100 Blood Urea Nitrogen 13 mg/dL 6-24 Creatinine 0.70 mg/dL 0.51-0.95 BUN/Creatinine Ratio 18.6 8-20 Calcium 9.2 mg/dL 8.6-10.3 Total Protein 7.2 g/dL 6.4-8.9 Albumin 4.3 g/dL 3.2-5.2 Globulin 2.9 g/dL 2-4 Albumin/Globulin Ratio 1.5 1-3 Total Bilirubin 0.30 mg/dL 0.2-1.0 Alkaline Phosphatase 84 U/L 34-104 Alt 21 U/L 7-52 Ast 23 U/L 13-39 Urinalysis 11/17/2013 [facility] [place] Urine Color Yellow [phone] Urine Appearance Clear Urine Specific [place] 1.025 1.010-1.030 Urine Esterase 1+ Abnormal Negative Urine Nitrate Negative Negative Urine Urobilinogen Negative E.U./dL Negative Urine Protein Negative mg/dL Negative Urine pH 6.0 5-9 Urine Blood Negative Negative Urine Ketones Negative mg/dL Negative Urine Bilirubin Negative Negative Urine Glucose Negative mg/dL Negative Urine Drug 11/17/2013 [facility] [place] Amphetamine Ur None Detected None Detect SCR ED & [phone] Screen Pain Clinic Barbiturates Urine Screen None Detected None Detect Benzodiazepine Urine Screen None Detected None Detect Urine Cannabinoids Screen None Detected None Detect Urine Cocaine Screen None Detected None Detect Urine Opiates Screen None Detected None Detect Urine Phencyclidine Screen None Detected None Detect 32 Urine Microscopic 11/17/2013 [facility] [place] Urine WBC 1+ (<10 /hpf) None Seen [phone] Urine RBC None Seen None Seen Urine Mucus Present /lpf Absent Urine Epithelial Cells 2+ Squamous /hpf None Seen Bacteria Urine 1+ None Seen Urine Culture And 11/17/2013 [facility] [place] Urine Culture (SEE NOTE) 33 Sensitivities [phone] CBC Auto Diff 12/15/2012 [facility] [place] White Blood 8.7 10^3/uL 4.8-10. [phone] Count 8 Red Blood Count 4.49 10^6/uL 4.0-5.4 Hemoglobin 13.5 g/dL 12.0-16.0 Hematocrit 41 % 35-47 Mean Corpuscular Volume 91 fL 80-97 Mean Corpuscular Hemoglobin 30 pg 27-31 Mean Corpuscular HGB Conc 33 g/dL 31-36 Red Cell Distribution Width 13 % 10.5-15 Platelet Count 234 10^3/uL 150-450 Mean Platelet Volume 10 um3 7.4-10.4 Abs Neutrophils 5.8 10^3/uL 1.5-7.7 Abs Lymphocytes 2.4 10^3/uL 1.0-4.8 Abs Monocytes 0.4 10^3/uL 0-0.8 Abs Eosinophils 0.1 10^3/uL 0-0.6 Abs Basophils 0 10^3/uL 0-0.2 Abs Nucleated RBC 0.01 10^3/uL Granulocyte % 66.0 % 38-83 Lymphocyte % 27.1 % 25-47 Monocyte % 5.1 % 1-9 Eosinophil % 1.5 % 0-6 Basophil % 0.3 % 0-2 Nucleated Red Blood Cells % 0.1 Laboratory test 12/15/2012 [facility] [place] Serum Negative Negative 34 finding [phone] Urine Drug SCR 12/15/2012 [facility] [place] Amphetamine Ur None None Detect ED & Pain [phone] Screen Detected Clinic Barbiturates Urine Screen None Detected None Detect Benzodiazepine Urine Screen None Detected None Detect Urine Cannabinoids Screen None Detected None Detect Urine Cocaine Screen None Detected None Detect Urine Opiates Screen None Detected None Detect Urine Phencyclidine Screen None Detected None Detect 35 Comp Metabolic Panel 12/15/2012 [facility] [place] Sodium 137 mmol/L 133- 145 [phone] Potassium 3.7 mmol/L 3.6-5.2 Chloride 105 mmol/L 101-111 Co2 Carbon Dioxide 26.0 mmol/L 22-32 Anion Gap 6.0 mmol/L 2-11 Glucose 90 mg/dL 70-100 Blood Urea Nitrogen 11 mg/dL 6-24 Creatinine 0.70 mg/dL 0.50-1.40 BUN/Creatinine Ratio 15.7 8-20 Calcium 9.5 mg/dL 8.1-9.9 Total Protein 7.2 g/dL 6.2-8.1 Albumin 4.0 g/dL 3.6-5.4 Globulin 3.2 g/dL 2-4 Albumin/Globulin Ratio 1.3 1-3 Total Bilirubin 0.4 mg/dL 0.4-1.5 Alkaline Phosphatase 102 U/L Low 130-390 Alt 20 U/L 14-54 Ast 25 U/L 12-42 Laboratory test 12/15/2012 [facility] [place] Acetaminophen < 10 g/mL Low 10-30 36 finding [phone] Alcohol < 10 mg/dL Less Than 10 37 Salicylate < 4.0 mg/L Less Than 30 38 TSH (Thyroid Stimulating Horm) 2.70 miu/mL 0.34-5.60 Urinalysis 12/15/2012 [facility] [place] Urine Color Yellow [phone] Urine Appearance Clear Urine Specific [place] 1.030 1.010-1.030 Urine Esterase Negative Negative Urine Nitrate Negative Negative Urine Urobilinogen Negative E.U./dL Negative Urine Protein Negative mg/dL Negative Urine pH 6.0 5-9 Urine Blood Negative Negative Urine Ketones Negative mg/dL Negative Urine Bilirubin Negative Negative Urine Glucose Negative mg/dL Negative Laboratory test 09/02/2012 In House Test Urine neg finding Lipid Profile 12/11/2011 [facility] [place] Triglyceride 100 mg/dL 40-200 (Trig/Chol/HDL) [phone] Cholesterol 172 mg/dL 100-175 High Density Lipoprotein 55 mg/dL 40-60 39 Cholesterol/HDL Ratio 3.13 AVERAGE 1-4.44 Low Density Lipoprotein 97 mg/dL Less Than 100 40 Laboratory test 12/11/2011 [facility] [place] Glucose 92 mg/dL 70-100 finding [phone] Xray 09/30/2011 [facility] X-Ray, Ankle, 3 nl Views, LT Xray 08/23/2011 [facility] X-Ray, Wrist, wnl Complete, Min. Of 3 Views R Liver Function 07/26/2011 [facility] [place] Bilirubin 0.1 mg/dL 0.1-0.5 Panel [phone] Direct Indirect Bilirubin 0.7 mg/dL 0.3-1.0 41 Comp Metabolic Panel 07/26/2011 [facility] [place] Sodium 138 mmol/L 135- 145 [phone] Potassium 4.1 mmol/L 3.6-5.2 Chloride 106 mmol/L 101-111 Co2 (Carbon Dioxide) 24.0 mmol/L 22-32 Anion Gap 8.0 mmol/L 2-11 42 Glucose 82 mg/dL 70-100 BUN 16 mg/dL 6-24 Creatinine 0.8 mg/dL 0.50-1.40 One Over Creatinine 1.25 BUN/Creatinine Ratio 20.0 8-20 Calcium 9.1 mg/dL 8.1-9.9 Total Protein 6.5 GM/DL 6.2-8.1 Albumin 4.1 GM/DL 3.6-5.4 Globulin 2.4 GM/DL 2-4 Albumin/Globulin Ratio 1.7 1-3 Bilirubin Total 0.8 mg/dL 0.4-1.5 43 Alkaline Phosphatase 85 U/L Low 130-390 Alt (SGPT) 15 U/L 14-54 Ast (Sgot) 22 U/L 12-42 Manual Differential 07/26/2011 [facility] [place] Polysegmented Neutrophil 72 % 38-83 [phone] Lymphocyte 17 % Low 25-47 Monocyte 9 % 0-13 Eosinophil 2 % 0-6 Absolute Neutrophil Count 4.1 RBC Morphology NORMAL Laboratory test 07/26/2011 [facility] [place] Acetaminophen < 10 g/mL Low 10-30 44 finding [phone] Alcohol < 10.0 mg/dL None Detected 45 Salicylate < 4.0 mg/dL Less Than 30 46 Thyroxine Free 0.97 ng/dL 0.61-1.24 TSH 1.03 MIU/ML 0.34-5.60 CBC Auto Diff 07/26/2011 [facility] [place] White Blood Count 5.8 CUMM 4.8- 10.8 [phone] Red Cell Count 4.19 CUMM Low 4.2-5.4 Hemoglobin 13.1 g/dL 12.0-16.0 Hematocrit 38 % 35-47 Mean Corpuscular Volume 91 um3 79-97 Mean Corpuscular Hemoglob 31 pg 27-31 Mean Corpuscular HGB Cone 34 g/dL 32-36 Redcell Distribution WDTH 13 % 10.5-15 Platelet Count 207 CUMM 150-450 Mean Platelet Volume 9.2 um3 7.4-10.4 47 Comp Metabolic Panel 06/14/2011 [facility] [place] Sodium 135 mmol/L 135- 145 [phone] Potassium 3.7 mmol/L 3.6-5.2 Chloride 101 mmol/L 101-111 Co2 (Carbon Dioxide) 30.0 mmol/L 22-32 Anion Gap 4.0 mmol/L 2-11 48 Glucose 120 mg/dL High 70-100 BUN 19 mg/dL 6-24 Creatinine 0.6 mg/dL 0.50-1.40 One Over Creatinine 1.66 BUN/Creatinine Ratio 31.7 High 8-20 Calcium 9.5 mg/dL 8.1-9.9 Total Protein 7.6 GM/DL 6.2-8.1 Albumin 4.4 GM/DL 3.6-5.4 Globulin 3.2 GM/DL 2-4 Albumin/Globulin Ratio 1.4 1-3 Bilirubin Total 0.6 mg/dL 0.4-1.5 49 Alkaline Phosphatase 93 U/L Low 130-390 Alt (SGPT) 15 U/L 14-54 Ast (Sgot) 22 U/L 12-42 Urinalysis 06/14/2011 [facility] [place] Ua Color YELLOW Yellow [phone] Appearance-Urine CLEAR Clear Specific [place]-Ur 1.030 1.010-1.030 Esterase-Urine NEGATIVE Negative Nitrite NEGATIVE Negative Vmwhorlegbze-Se-CVB NEGATIVE Negative Protein-Urine NEGATIVE Negative PH-Urine 6.0 5-9 Blood-Urine NEGATIVE Negative Ketones-Urine 1+ Abnormal Negative Bilirubin-Ur NEGATIVE Negative Glucose-Urine NEGATIVE Negative Urine Drug 06/14/2011 [facility] [place] Amphetamines Urine NONE DETECTED None Detect SCR ED & [phone] Screen Pain Clinic Barbituates Urine Screen NONE DETECTED None Detect Benzodiazepine Ur Screen NONE DETECTED None Detect Cannabinoid Urine Screen NONE DETECTED None Detect Cocaine Metabolites Urine NONE DETECTED None Detect Opiates Urine Screen NONE DETECTED None Detect PCP Urine Screen NONE DETECTED None Detect 50 Manual Differential 06/14/2011 [facility] [place] Polysegmented Neutrophil 77 % 38-83 [phone] Lymphocyte 18 % Low 25-47 Monocyte 3 % 0-13 Eosinophil 2 % 0-6 Absolute Neutrophil Count 6.4 RBC Morphology NORMAL CBC Auto Diff 06/14/2011 [facility] [place] White Blood Count 8.4 CUMM 4.8- 10.8 [phone] Red Cell Count 4.28 CUMM 4.2-5.4 Hemoglobin 13.5 g/dL 12.0-16.0 Hematocrit 40 % 35-47 Mean Corpuscular Volume 93 um3 79-97 Mean Corpuscular Hemoglob 31 pg 27-31 Mean Corpuscular HGB Cone 34 g/dL 32-36 Redcell Distribution WDTH 12 % 10.5-15 Platelet Count 243 CUMM 150-450 Mean Platelet Volume 8.6 um3 7.4-10.4 51 Laboratory test 06/14/2011 [facility] [place] Acetaminophen < 10 g/mL Low 10-30 52 finding [phone] Alcohol < 10.0 mg/dL None Detected 53 Salicylate < 4.0 mg/dL Less Than 30 54 TSH 1.65 MIU/ML 0.34-5.60 Ua Inhouse 03/30/2011 In House Ua Glucose - Ua Bilirubin - Ua Ketones - Ua Specific [place] 1.030 Ua Blood lrg Ua PH 5.0 Ua Protein - Ua Urobilinogen - Ua Nitrite - Ua Leukocytes - Xray 11/05/2010 [facility] Medicine X-Ray, Chest wnl incl Single View, clavicle Frontal Laboratory test 10/22/2010 [facility] [place] Valproic Acid 80.4 g/mL 50- 100 55 finding [phone] (Depakene) Vitamin D, 25 09/27/2010 [facility] [place] 25-Hydroxy 4.2 ng/mL () Hydroxy [phone] Vitamin D2 25-Hydroxy Vitamin D3 27 ng/mL () 25-Hydroxy Vitamin D Total 31 ng/mL () 56 Laboratory test finding 09/27/2010 [facility] [place] Glucose 89 mg/dL 70- 100 [phone] Vitamin B12 827 pg/mL 180-914 Valproic Acid (Depakene) 58.6 g/mL 50-100 57 TSH 1.10 MIU/ML 0.34-5.60 Lipid Profile 09/27/2010 [facility] [place] Triglyceride 55 mg/dL 40-200 (Trig/Chol/HDL) [phone] Cholesterol 159 mg/dL 100-175 High Density Lipoprotein 67 mg/dL High 40-60 58 Cholesterol/HDL Ratio 2.37 AVERAGE 1-4.44 Low Density Lipoprotein 81 mg/dL Less Than 100 59 CBC With Electronic 09/27/2010 [facility] [place] White Blood 5.4 CUMM 4.8- 10.8 Diff [phone] Count Red Cell Count 4.09 CUMM 4.0-5.2 Hemoglobin 12.8 g/dL 11.5-15.5 Hematocrit 38 % 35-45 Mean Corpuscular Volume 93 um3 79-97 Mean Corpuscular Hemoglob 31 pg 27-31 Mean Corpuscular HGB Cone 34 g/dL 32-36 Redcell Distribution WDTH 12 % 10.5-15 Platelet Count 178 CUMM 150-450 Mean Platelet Volume 10.2 um3 7.4-10.4 Gran % 63.4 % 38-83 Lymph % 27.9 % 25-47 Mononuclear % 6.1 % 1-9 Eosinophil % 2.2 % 0-6 Basophil % 0.4 % 0-2 Abs Lymphs 1.5 1.0-4.8 Abs Mononuclear 0.3 0-0.8 Absolute Neutrophil Count 3.4 1.5-7.7 Abs Eosinophils 0.1 0-0.6 Abs Basophils 0 0-0.2 Xray 06/01/2010 [facility] X-Ray, Toe[S], Min. wnl Of 2 Views, RT Laboratory test finding 05/20/2009 In House Culture Throat neg Rapid Screen Culture Throat no b hem strep Vad 09/23/2006 [facility] [place] Vad Final NONREACTIVE Nonreactive 60 [phone] Laboratory test 09/23/2006 [facility] [place] Hepatitis C NEGATIVE Negative finding [phone] Antibody Hep B Olivia AB Titer 147.58 MIU/ML 61 Hepatitis B Surface Ag NEGATIVE Negative Ua Inhouse 01/15/2006 In House Ua Glucose NEG Ua Bilirubin NEG Ua Ketones NEG Ua Specific [place] 1.030 Ua Blood NEG Ua PH 6.0 Ua Protein NEG Ua Urobilinogen NEG Ua Nitrite NEG Ua Leukocytes +1 Culture Urine Inhouse 01/15/2006 In House Colonies 25,000 CFU Lactob. Laboratory test 09/19/2005 In House Urine Microscopic NEG finding Inhouse Hemoglobin 12.1 Ua Inhouse 09/19/2005 In House Ua Glucose NEG Ua Bilirubin NEG Ua Ketones NEG Ua Specific [place] 1.015 Ua Blood NEG Ua PH 5.0 Ua Protein NEG Ua Urobilinogen NEG Ua Nitrite NEG Ua Leukocytes TRACE 1 Because ethnic data is not always readily available, this report includes an eGFR for both -Americans and non- Americans. The National Kidney Disease Education Program (NKDEP) does not endorse the use of the MDRD equation for patients that are not between the ages of 18 and 70, are , have extremes of body size, muscle mass, or nutritional status, or are non- or non-. According to the National Kidney Foundation, irrespective of diagnosis, the stage of the disease is based on the level of kidney function: Stage Description GFR(mL/min/1.73 m(2)) 1 Kidney damage with normal or decreased GFR 90 2 Kidney damage with mild decrease in GFR 60-89 3 Moderate decrease in GFR 30-59 4 Severe decrease in GFR 15-29 5 Kidney failure <15 (or dialysis) 2 <5.0 Negative 5.0 - 25.0 Indeterminate (Repeat testing recommended after 72 hours) >25.0 Positive Perimenopausal women can display HCG levels of up to 20 mIU/mL 3 [facility] Severe Sepsis and Septic Shock Management Bundle Measure requires all lactic acids initially measuring >2.0 mmol/L be repeated. 4 Standard intensity warfarin therapeutic range: 2.0-3.0 High intensity warfarin therapeutic range: 2.5-3.5 5 SEE RESULT BELOW Name: JHONY GARCIA : [address]: Riaz De MD Acct: [id number] Unit: [id number] AGE: 23 Location: ED Re12/15/18 SEX: F Status: DEP ER SPEC: [id number] OSIRIS: 12/15/[address] [facility] [address]: Riaz De MD REQ: [id number] RECD: 12/15/18 STATUS: LUBNA KERR DR: Denise MARQUES _ SOURCE: URINE SPDESC: ORDERED: Urine Culture Procedure Result Reported Site Urine Culture Final 12/16/18- 1606 ML No growth of clinically significant organisms * ML - Main Lab . END OF REPORT DEPARTMENT OF PATHOLOGY, [address] [place] [address] Darion Covington M.D. Director [facility] # [id number] 6 void, clear, yellow 7 SEE RESULT BELOW Name: JHONY GARCIA : [address]: Denise MARQUES Acct: [id number] Unit: [id number] AGE: 22 Location: [facility] Re08/27/17 SEX: F Status: REG REF SPEC: [id number] OSIRIS: 08/27/[address]: Denise MARQUES REQ: [id number] RECD: 08/28/17 STATUS: COMP _ SOURCE: VAGINAL SPDESC: ORDERED: Genital Culture Procedure Result Reported Site Genital Culture Final 08/30/17- 1313 ML Organism 1 INA VAGINALIS-PRESUMPTIVE Quantity 2+ Organism 2 NORMAL GLEN Quantity 1+ * ML - MAIN LAB ([facility]) . END OF REPORT * ML=Testing performed at Main Lab DEPARTMENT OF PATHOLOGY, [address] [place] [address] Darion Covington M.D. Director [facility] # [id number] 8 [facility] Severe Sepsis and Septic Shock Management Bundle Measure requires all lactic acids initially measuring >2.0 mmol/L be repeated. 9 Please note: The following may produce a false positive D Dimer test: - Rheumatoid factor greater than 60 IU/ml - Plasma hemoglobin greater than 0.05 gm/dl - Bilirubin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
--- OUTSIDE RECORDS SUMMARY | 2019-03-21 13:24 | XMS REPORT | Continuity of Care Document ---
:1995 External Reference #:[id number] Author Name Ton Ray D.O. Address [address] [place] [id number] Care Team Providers Name Role Phone Ton Ray D.O. 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 Payers Date Identification Numbers Payment Provider Subscriber Policy Number: [id number] Rosemary Garcia PayID: [id number] [address] [place] [address] Problems Active Problems Provider Date Ostium primum [...] patient is currently sexually active Father's Occupation Ethologist Mother's Occupation [employer] Child Social Hx biological fa unknown Child [...] CPT Code Status Date Vaccine Lot # [id number] Given 07/20/2018 Influenza Virus Vaccine, Quadrivalent, Split, [id number] Preservative Free 30214 Given 05/28/2017 Influenza Virus Vaccine, Quadrivalent, Split, [id number] Preservative Free 46399 Given 06/28/2013 Flu, Split Virus 3Yrs [id number] 95991 Given 04/01/2013 Menactra Menningitis Vaccine [id number] 98897 Given 04/23/2012 Flu, Split Virus 3Yrs [id number] 31792 Given 09/30/2011 Hep A, Ped/Adolscent, 2 Dose [id number] 50493 Given 06/06/2011 Flu, Split Virus 3Yrs [id number] 47922 Given 03/30/2011 Hep A, Adult [id number] 62792 Given 06/01/2010 Flu, Split Virus 3Yrs [id number] 58086 Given 08/16/2009 Flu, Split Virus 3Yrs [id number] 85141 Given 05/05/2009 Gardasil HPV vaccine [id number] 22994 Given 05/05/2009 Varicella (Chicken Pox) Immunization [id number] 83967 Given 01/06/2009 Gardasil HPV vaccine [id number] 04037 Given 06/13/2008 Flu, Split Virus 3Yrs [id number] 01982 Given 03/21/2008 Menactra Menningitis Vaccine [id number] 65818 Given 03/21/2008 Gardasil HPV vaccine [id number] 04080 Given 12/28/2007 Adacel or Boostrix, TDaP [id number] 15228 Given 06/23/2007 Flu, Split Virus 3Yrs 62116 Given 07/07/2006 Flu, Split Virus 3Yrs 26222 Given 08/20/2004 Flu, Split Virus 3Yrs 81002 Given 06/08/2003 Flu, Split Virus 3Yrs 94420 Given 10/18/2002 Flu, Split Virus 3Yrs 07593 Given 09/01/2002 Flu, Split Virus 3Yrs 02476 Given 02/24/2002 Poliomyelitis Immunization 74726 Given 02/24/2002 MMR Virus Immunization 87895 Given 02/24/2002 Dtap Immunization (Tripedia) (Infanrix) 52963 Given 11/07/2000 Prevnar (Pneumococcal Conjugate) 62808 Given 05/01/1998 Hepatitis B Immunization 25591 Given 05/01/1998 Dtap Immunization (Tripedia) (Infanrix) 18235 Given 05/01/1998 Hib,HbOC,4 Dose Schedule 19705 Given 02/06/1998 Varicella (Chicken Pox) Immunization 44509 Given 02/06/1998 MMR Virus Immunization 09494 Given 1997 Hib,HbOC,4 Dose Schedule 57348 Given 1997 Dtap Immunization (Tripedia) (Infanrix) 84352 Given 1997 Oral Poliovirus Immunization 61854 Given 1997 Oral Poliovirus Immunization 21122 Given 1997 Dtap Immunization (Tripedia) (Infanrix) 37530 Given 1997 Hib,HbOC,4 Dose Schedule 44144 Given 1997 Hepatitis B Immunization 70157 Given 1997 Oral Poliovirus Immunization 30925 Given 1997 Dtap Immunization (Tripedia) (Infanrix) 92555 Given 1997 Hib,HbOC,4 Dose Schedule 61014 Given 1997 Hepatitis B Immunization Vital Signs [...] Mass Index) 22.5 kg/m2 Last Menstrual Period [id number] Body Mass Index Percentile 82 % 03/22/2010 [...] H/L Range Note CBC Auto Diff 12/15/2018 [facility] White Blood 9.6 10^3/uL Normal 3.5-10.8 [phone] Count Red Blood Count 4.49 10^6/uL Normal [...] Cells % 0 Comp Metabolic Panel 12/15/2018 [facility] Sodium 140 mmol/L Normal 135-145 [phone] Potassium 4.0 mmol/L Normal 3.5-5.0 Chloride 106 [...] 116.2 >60 1 Laboratory test finding 12/15/2018 [facility] Lipase 13 U/L Normal 11.0-82.0 [phone] C Reactive Protein 2.82 mg/L Normal <8.01 HCG < 0.60 mIU/mL 2 Lactic Acid 0.4 mmol/L Low 0.5-2.0 3 Inr/Protime 12/15/2018 [facility] Inr 1.02 Normal 0.82-1.09 4 [phone] Urinalysis Profile 12/15/2018 [facility] Urine Color Yellow [phone] Urine Appearance Clear Urine Specific Lindsay 1.028 Normal 1.010-1.030 Urine pH 5.0 Normal [...] Present Abnormal Absent Urine Culture And 12/15/2018 [facility] Urine Culture SEE RESULT BELOW 5 Sensitivities [phone] Laboratory test 08/08/2018 In House Culture Throat negative finding Rapid Screen Culture Throat negative Laboratory test finding 12/09/2017 In House Test Urine negative Ua Inhouse 12/09/2017 In House Ua Glucose - 6 Ua Bilirubin - Ua Ketones - Ua Specific Lindsay 1.030 Ua Blood 3+ Ua PH 6.0 Ua Protein - Ua Urobilinogen - Ua Nitrite - Ua Leukocytes - GC/Chlamydia 12/09/2017 [facility] Chlamydia Negative Negative Amplified Rna [phone] trachomatis Rna Neisseria gonorrhoeae (GC) Rna Negative Negative Laboratory test 08/27/2017 [facility] Culture Genital & SEE RESULT 7 finding [phone] Sensitivity BELOW GC/Chlamydia 08/27/2017 [facility] Chlamydia Negative Negative Amplified Rna [phone] trachomatis Rna Neisseria gonorrhoeae (GC) Rna Negative Negative Ua Inhouse 08/27/2017 In House Ua Glucose - Ua Bilirubin - Ua Ketones - Ua Specific Lindsay 1.030 Ua Blood tr Ua PH 6.0 Ua Protein - Ua Urobilinogen - Ua Nitrite - Ua Leukocytes - Culture Urine 08/27/2017 In House Colonies no growth Inhouse Laboratory test 08/27/2017 In House Test negative finding Urine Laboratory test 06/24/2017 [facility] Lactic Acid 0.6 mmol/L Normal 0.5-2. 8 finding [phone] Inr/Protime 06/24/2017 [facility] Inr 0.90 Normal 0.89-1 [phone] .11 Laboratory test 06/24/2017 [facility] Partial Thrombo 28.4 seconds Normal 26.0-3 finding [phone] Time PTT 6.3 D Dimer Quantitative < 200 ng/mL Normal Less Than 230 9 CBC Auto Diff 06/24/2017 [facility] White Blood 8.8 10^3/uL Normal 3.5-10.8 [phone] Count Red Blood Count 4.25 10^6/uL Normal [...] Cells % 0 Normal Laboratory test 06/24/2017 [facility] Troponin-I (TnI) 0.00 ng/mL Normal <0.04 finding [phone] Comp Metabolic 06/24/2017 [facility] Sodium 137 mmol/L Normal 133- 145 Panel [phone] Potassium 3.9 mmol/L Normal 3.5-5.0 Chloride 106 [...] 104.0 Normal >60 10 Laboratory test 06/24/2017 [facility] Magnesium 1.9 mg/dL Normal 1.9- 2.7 finding [phone] Lipase 22 U/L Normal 11.0-82.0 C Reactive Protein 3.25 mg/L Normal < 5.00 11 HCG < 0.60 mIU/mL Normal 12 TSH (Thyroid Stim Horm) 1.03 mcIU/mL Normal 0.34-5.60 Xray 05/28/2017 [facility] X-Ray, Foot, Normal right 13 Right, Complete foot Laboratory test 04/25/2017 In House Culture Throat negative finding Rapid Screen Culture Throat negative Iron & Iron Binding Capacity 02/25/2017 [facility] Iron 95 g/dL Normal 50-212 [phone] Unsaturated Iron Binding 216 g/dL Normal Total Iron Binding Capacity 311 g/dL Normal 250-450 % Iron Saturation 31 % Normal 15-55 Laboratory test 02/25/2017 [facility] Vitamin B12 342 pg/mL Normal 180-914 14 finding [phone] Folic Acid (Folate) 14.30 ng/mL Normal >3.99 CBC Auto Diff 02/25/2017 [facility] White Blood 8.1 10^3/uL Normal 3.5-10.8 [phone] Count Red Blood Count 4.13 10^6/uL Normal [...] % 0.1 Normal Comp Metabolic Panel 02/25/2017 [facility] Sodium 141 mmol/L Normal 133-145 [phone] Potassium 3.8 mmol/L Normal 3.5-5.0 Chloride 106 [...] 124.8 Normal >60 15 Laboratory test 02/25/2017 [facility] TSH (Thyroid 1.24 mcIU/mL Normal 0.34-5.60 finding [phone] Stim Horm) Hemoglobin A1c (Glyco HGB) 5.2 % Normal Less than 6.0 16 Vitamin D Total 25(Oh) 29.6 ng/mL Low 30-50 Cortisol 7.44 g/dL Normal 17 GC/Chlamydia 01/30/2017 [facility] Chlamydia Negative Normal Negative Amplified Rna [phone] trachomatis Rna Neisseria gonorrhoeae (GC) Rna Negative Normal Negative Laboratory test 01/30/2017 [facility] Culture Genital SEE RESULT 18 finding [phone] & Sensitivity BELOW Laboratory test 09/27/2016 In House Culture Throat positive finding Rapid Screen Laboratory test 05/22/2016 In House Culture Throat positive finding Rapid Screen Laboratory test 03/26/2016 [facility] Lactic Acid 1.3 mmol/L Normal 0.5-2 19 finding [phone] Urinalysis 03/26/2016 [facility] Urine Color Yellow Normal Profile [phone] Urine Appearance Clear Normal Urine Specific Lindsay 1.014 Normal 1.010-1.030 Urine pH 6.0 Normal 5-9 Urine Urobilinogen Negative Normal Negative Urine Ketones Negative Normal Negative Urine Protein Negative Normal Negative Urine Leukocytes Negative Normal Negative Urine Blood Negative Normal Negative Urine Nitrite Negative Normal Negative Urine Bilirubin Negative Normal Negative Urine Glucose Negative Normal Negative Laboratory test 03/26/2016 [facility] Negative Normal Negative 20 finding [phone] (HCG) Urine Blood Culture SEE RESULT BELOW 21 Laboratory test 03/20/2016 [facility] Potassium 4.0 mmol/L Normal 3.5 -5.0 22 finding [phone] Redraw Ast Redraw 36 U/L Normal 13-39 Comp Metabolic Panel 03/20/2016 [facility] Sodium 134 mmol/L Normal 133-145 [phone] Chloride 100 mmol/L Low 101-111 Co2 Carbon [...] Normal 13-39 25 CBC Auto Diff 03/20/2016 [facility] White Blood 4.9 10^3/uL Normal 3.5-10.8 [phone] Count Red Blood Count 4.92 10^6/uL Normal [...] Cells % 0.3 Normal Urine Drug 03/20/2016 [facility] Amphetamine Ur None Detected Normal None SCR ED & [phone] Screen Detect Pain Clinic Barbiturates Urine Screen None Detected Normal None Detect Benzodiazepine Urine Screen None Detected Normal None Detect Urine Cannabinoids Screen None Detected Normal None Detect Urine Cocaine Screen None Detected Normal None Detect Urine Opiates Screen None Detected Normal None Detect Urine Phencyclidine Screen None Detected Normal None Detect 26 Urinalysis Profile 03/20/2016 [facility] Urine Color Yellow Normal [phone] Urine Appearance Clear Normal Urine Specific Lindsay 1.013 Normal 1.010-1.030 Urine pH 6.0 Normal [...] Cell Present Abnormal Absent Laboratory test 03/20/2016 [facility] Lactic Acid 0.7 mmol/L Normal 0.5-2.0 27 finding [phone] Urine Culture And Sensitivities SEE RESULT BELOW 28 Blood Culture SEE RESULT BELOW 29 CBC Auto Diff 11/17/2013 [facility] White Blood 11.3 10^3/uL High 4.8 -10.8 [phone] Count Red Blood Count 4.45 10^6/uL 4.0-5.4 [...] Blood Cells % 0.1 Laboratory test 11/17/2013 [facility] Serum Negative Negative 30 finding [phone] Acetaminophen < 15 g/mL 31 Alcohol < 10 mg/dL <10 Salicylate < 2.50 mg/dL <30 TSH (Thyroid Stimulating Horm) 1.84 IU/mL 0.34-5.60 Comp Metabolic Panel 11/17/2013 [facility] Sodium 139 mmol/L 133- 145 [phone] Potassium 4.0 mmol/L 3.7-5.6 Chloride 108 mmol/L [...] 7-52 Ast 23 U/L 13-39 Urinalysis 11/17/2013 [facility] Urine Color Yellow [phone] Urine Appearance Clear Urine Specific Lindsay 1.025 1.010-1.030 Urine Esterase 1+ Abnormal Negative Urine Nitrate Negative Negative Urine Urobilinogen Negative E.U./dL Negative Urine Protein Negative mg/dL Negative Urine pH 6.0 5-9 Urine Blood Negative Negative Urine Ketones Negative mg/dL Negative Urine Bilirubin Negative Negative Urine Glucose Negative mg/dL Negative Urine Drug 11/17/2013 [facility] Amphetamine Ur None Detected None Detect SCR ED & [phone] Screen Pain Clinic Barbiturates Urine Screen None Detected None Detect Benzodiazepine Urine Screen None Detected None Detect Urine Cannabinoids Screen None Detected None Detect Urine Cocaine Screen None Detected None Detect Urine Opiates Screen None Detected None Detect Urine Phencyclidine Screen None Detected None Detect 32 Urine Microscopic 11/17/2013 [facility] Urine WBC 1+ (<10 /hpf) None Seen [phone] Urine RBC None Seen None Seen Urine Mucus Present /lpf Absent Urine Epithelial Cells 2+ Squamous /hpf None Seen Bacteria Urine 1+ None Seen Urine Culture And 11/17/2013 [facility] Urine Culture (SEE NOTE) 33 Sensitivities [phone] CBC Auto Diff 12/15/2012 [facility] White Blood 8.7 10^3/uL 4.8-10. [phone] Count 8 Red Blood Count 4.49 10^6/uL [...] Blood Cells % 0.1 Laboratory test 12/15/2012 [facility] Serum Negative Negative 34 finding [phone] Urine Drug SCR 12/15/2012 [facility] Amphetamine Ur None None Detect ED & Pain [phone] Screen Detected Clinic Barbiturates Urine Screen None Detected None Detect Benzodiazepine Urine Screen None Detected None Detect Urine Cannabinoids Screen None Detected None Detect Urine Cocaine Screen None Detected None Detect Urine Opiates Screen None Detected None Detect Urine Phencyclidine Screen None Detected None Detect 35 Comp Metabolic Panel 12/15/2012 [facility] Sodium 137 mmol/L 133- 145 [phone] Potassium 3.7 mmol/L 3.6-5.2 Chloride 105 mmol/L [...] Ast 25 U/L 12-42 Laboratory test 12/15/2012 [facility] Acetaminophen < 10 g/mL Low 10-30 36 finding [phone] Alcohol < 10 mg/dL Less Than 10 37 Salicylate < 4.0 mg/L Less Than 30 38 TSH (Thyroid Stimulating Horm) 2.70 miu/mL 0.34-5.60 Urinalysis 12/15/2012 [facility] Urine Color Yellow [phone] Urine Appearance Clear Urine Specific Lindsay 1.030 1.010-1.030 Urine Esterase Negative Negative Urine Nitrate Negative Negative Urine Urobilinogen Negative E.U./dL Negative Urine Protein Negative mg/dL Negative Urine pH 6.0 5-9 Urine Blood Negative Negative Urine Ketones Negative mg/dL Negative Urine Bilirubin Negative Negative Urine Glucose Negative mg/dL Negative Laboratory test 09/02/2012 In House Test Urine neg finding Lipid Profile 12/11/2011 [facility] Triglyceride 100 mg/dL 40-200 (Trig/Chol/HDL) [phone] Cholesterol 172 mg/dL 100-175 High Density Lipoprotein 55 mg/dL 40-60 39 Cholesterol/HDL Ratio 3.13 AVERAGE 1-4.44 Low Density Lipoprotein 97 mg/dL Less Than 100 40 Laboratory test 12/11/2011 [facility] Glucose 92 mg/dL 70-100 finding [phone] Xray 09/30/2011 [facility] X-Ray, Ankle, 3 nl Views, LT Xray 08/23/2011 [facility] X-Ray, Wrist, wnl Complete, Min. Of 3 Views R Liver Function 07/26/2011 [facility] Bilirubin 0.1 mg/dL 0.1-0.5 Panel [phone] Direct Indirect Bilirubin 0.7 mg/dL 0.3-1.0 41 Comp Metabolic Panel 07/26/2011 [facility] Sodium 138 mmol/L 135- 145 [phone] Potassium 4.1 mmol/L 3.6-5.2 Chloride 106 mmol/L [...] (Sgot) 22 U/L 12-42 Manual Differential 07/26/2011 [facility] Polysegmented Neutrophil 72 % 38-83 [phone] Lymphocyte 17 % Low 25-47 Monocyte 9 % 0-13 Eosinophil 2 % 0-6 Absolute Neutrophil Count 4.1 RBC Morphology NORMAL Laboratory test 07/26/2011 [facility] Acetaminophen < 10 g/mL Low 10-30 44 finding [phone] Alcohol < 10.0 mg/dL None Detected 45 Salicylate < 4.0 mg/dL Less Than 30 46 Thyroxine Free 0.97 ng/dL 0.61-1.24 TSH 1.03 MIU/ML 0.34-5.60 CBC Auto Diff 07/26/2011 [facility] White Blood Count 5.8 CUMM 4.8- 10.8 [phone] Red Cell Count 4.19 CUMM Low 4.2-5.4 Hemoglobin 13.1 g/dL 12.0-16.0 Hematocrit 38 % 35-47 Mean Corpuscular Volume 91 um3 79-97 Mean Corpuscular Hemoglob 31 pg 27-31 Mean Corpuscular HGB Cone 34 g/dL 32-36 Redcell Distribution WDTH 13 % 10.5-15 Platelet Count 207 CUMM 150-450 Mean Platelet Volume 9.2 um3 7.4-10.4 47 Comp Metabolic Panel 06/14/2011 [facility] Sodium 135 mmol/L 135- 145 [phone] Potassium 3.7 mmol/L 3.6-5.2 Chloride 101 mmol/L [...] Ast (Sgot) 22 U/L 12-42 Urinalysis 06/14/2011 [facility] Ua Color YELLOW Yellow [phone] Appearance-Urine CLEAR Clear Specific Lindsay-Ur 1.030 1.010-1.030 Esterase-Urine NEGATIVE Negative Nitrite NEGATIVE Negative [facility]ykl[facility]kea-[facility] NEGATIVE Negative Protein-Urine NEGATIVE Negative PH-Urine 6.0 5-9 Blood-Urine NEGATIVE Negative Ketones-Urine 1+ Abnormal Negative Bilirubin-Ur NEGATIVE Negative Glucose-Urine NEGATIVE Negative Urine Drug 06/14/2011 [facility] Amphetamines Urine NONE DETECTED None Detect SCR ED & [phone] Screen Pain Clinic Barbituates Urine Screen NONE DETECTED None Detect Benzodiazepine Ur Screen NONE DETECTED None Detect Cannabinoid Urine Screen NONE DETECTED None Detect Cocaine Metabolites Urine NONE DETECTED None Detect Opiates Urine Screen NONE DETECTED None Detect PCP Urine Screen NONE DETECTED None Detect 50 Manual Differential 06/14/2011 [facility] Polysegmented Neutrophil 77 % 38-83 [phone] Lymphocyte 18 % Low 25-47 Monocyte 3 % 0-13 Eosinophil 2 % 0-6 Absolute Neutrophil Count 6.4 RBC Morphology NORMAL CBC Auto Diff 06/14/2011 [facility] White Blood Count 8.4 CUMM 4.8- 10.8 [phone] Red Cell Count 4.28 CUMM 4.2-5.4 Hemoglobin 13.5 g/dL 12.0-16.0 Hematocrit 40 % 35-47 Mean Corpuscular Volume 93 um3 79-97 Mean Corpuscular Hemoglob 31 pg 27-31 Mean Corpuscular HGB Cone 34 g/dL 32-36 Redcell Distribution WDTH 12 % 10.5-15 Platelet Count 243 CUMM 150-450 Mean Platelet Volume 8.6 um3 7.4-10.4 51 Laboratory test 06/14/2011 [facility] Acetaminophen < 10 g/mL Low 10-30 52 finding [phone] Alcohol < 10.0 mg/dL None Detected 53 Salicylate < 4.0 mg/dL Less Than 30 54 TSH 1.65 MIU/ML 0.34-5.60 Ua Inhouse 03/30/2011 In House Ua Glucose - Ua Bilirubin - Ua Ketones - Ua Specific Lindsay 1.030 Ua Blood lrg Ua PH 5.0 Ua Protein - Ua Urobilinogen - Ua Nitrite - Ua Leukocytes - Xray 11/05/2010 [facility] Medicine X-Ray, Chest wnl incl Single View, clavicle Frontal Laboratory test 10/22/2010 [facility] Valproic Acid 80.4 g/mL 50- 100 55 finding [phone] (Depakene) Vitamin D, 25 09/27/2010 [facility] 25-Hydroxy 4.2 ng/mL () Hydroxy [phone] Vitamin D2 25-Hydroxy Vitamin D3 27 ng/mL () 25-Hydroxy Vitamin D Total 31 ng/mL () 56 Laboratory test finding 09/27/2010 [facility] Glucose 89 mg/dL 70- 100 [phone] Vitamin B12 827 pg/mL 180-914 Valproic Acid (Depakene) 58.6 g/mL 50-100 57 TSH 1.10 MIU/ML 0.34-5.60 Lipid Profile 09/27/2010 [facility] Triglyceride 55 mg/dL 40-200 (Trig/Chol/HDL) [phone] Cholesterol 159 mg/dL 100-175 High Density Lipoprotein 67 mg/dL High 40-60 58 Cholesterol/HDL Ratio 2.37 AVERAGE 1-4.44 Low Density Lipoprotein 81 mg/dL Less Than 100 59 CBC With Electronic 09/27/2010 [facility] White Blood 5.4 CUMM 4.8- 10.8 Diff [phone] Count Red Cell Count 4.09 CUMM 4.0-5.2 [...] 0-0.6 Abs Basophils 0 0-0.2 Xray 06/01/2010 [facility] X-Ray, Toe[S], Min. wnl Of 2 Views, RT Laboratory test finding 05/20/2009 In House Culture Throat neg Rapid Screen Culture Throat no b hem strep Vad 09/23/2006 [facility] Vad Final NONREACTIVE Nonreactive 60 [phone] Laboratory test 09/23/2006 [facility] Hepatitis C NEGATIVE Negative finding [phone] Antibody Hep B Olivia AB Titer 147.58 MIU/ML 61 Hepatitis B Surface Ag NEGATIVE Negative Ua Inhouse 01/15/2006 In House Ua Glucose NEG Ua Bilirubin NEG Ua Ketones NEG Ua Specific Lindsay 1.030 Ua Blood NEG Ua PH 6.0 Ua Protein NEG Ua Urobilinogen NEG Ua Nitrite NEG Ua Leukocytes +1 Culture Urine Inhouse 01/15/2006 In House Colonies 25,000 CFU Lactob. Laboratory test 09/19/2005 In House Urine Microscopic NEG finding Inhouse Hemoglobin 12.1 Ua Inhouse 09/19/2005 In House Ua Glucose NEG Ua Bilirubin NEG Ua Ketones NEG Ua Specific Lindsay 1.015 Ua Blood NEG Ua PH 5.0 [...] levels of up to 20 mIU/mL 3 [facility] Severe Sepsis and Septic Shock Management Bundle Measure requires all lactic acids initially measuring >2.0 mmol/L be repeated. 4 Standard intensity warfarin therapeutic range: 2.0-3.0 High intensity warfarin therapeutic range: 2.5-3.5 5 SEE RESULT BELOW Name: JHONY GARCIA : [address]: Riaz De MD Acct: [id number] Unit: [id number] AGE: 23 Location: ED Re12/15/18 SEX: F Status: DEP ER SPEC: [id number] OSIRIS: 12/15/[address] [facility] [address]: Riaz De MD REQ: [id number] RECD: 12/15/18 STATUS: LUBNA KERR DR: Denise MARQUES _ SOURCE: URINE SPDESC: ORDERED: Urine Culture Procedure Result Reported Site Urine Culture Final 12/16/18- 1606 ML No growth of clinically significant organisms * ML - Main Lab . END OF REPORT DEPARTMENT OF PATHOLOGY, [address] [place] [address] Darion Covington M.D. Director [facility] # [id number] 6 void, clear, yellow 7 SEE RESULT BELOW Name: JHONY GARCIA : [address]: Denise MARQUES Acct: [id number] Unit: [id number] AGE: 22 Location: [facility] Re08/27/17 SEX: F Status: REG REF SPEC: [id number] OSIRIS: 08/27/[address]: Denise MARQUES REQ: [id number] RECD: 08/28/17 STATUS: COMP _ SOURCE: VAGINAL SPDESC: ORDERED: Genital Culture Procedure Result Reported Site Genital Culture Final 08/30/17- 1313 ML Organism 1 INA VAGINALIS-PRESUMPTIVE Quantity 2+ Organism 2 NORMAL GLEN Quantity 1+ * ML - MAIN LAB ([facility]) . END OF REPORT * ML=Testing performed at Main Lab DEPARTMENT OF PATHOLOGY, [address] [place] [address] Darion Covington M.D. Director [facility] # [id number] 8 [facility] Severe Sepsis and Septic Shock Management [...] and in selective patients <6.0%.Please refer to [place] [employer] Diabetic care guidelines for further information. 17 AM 8.7-22.4 PM <10 18 SEE RESULT BELOW Name: JHOYN GARCIA : [address]: Denise MARQUES Acct: [id number] Unit: [id number] AGE: 22 Location: [facility] Re01/30/17 SEX: F Status: REG REF SPEC: [id number] OSIRIS: 01/30/17-[address]: Denise MARQUES REQ: [id number] RECD: 01/31/17 STATUS: COMP _ SOURCE: HENRY LOW: ORDERED: Genital Culture COMMENTS: [id number] Procedure Result Reported Site Genital Culture Final 02/03/17- 1134 ML Organism 1 GARDNERELLA VAGINALIS Quantity 2+ Organism 2 NORMAL GLEN Quantity 3+ Routine genital cultures do not include selective agar for Neisseria gonorrhoeae. Molecular testing offers better test sensitivity and therefore is the preferred test methodology for identifying this organism. * ML - MAIN LAB ([facility]) . END OF REPORT * ML=Testing performed at Main Lab DEPARTMENT OF PATHOLOGY, [address] [place] [address] Darion Covington M.D. Director [facility] # [id number] 19 [facility] Severe Sepsis and Septic Shock Management Bundle Measure requires all lactic acids initially measuring >2.0 mmol/L be repeated. 20 If is still suspected, please repeat test after 48 to 72 hours. This test detects intact HCG only and is indicated for the early detection of . 21 SEE RESULT BELOW Name: JHONY GARCIA : [address]: Alton Beck MD Acct: [id number] Unit: [id number] AGE: 21 Location: ED Re03/26/16 SEX: F Status: DEP ER SPEC: [id number] OSIRIS: 03/26/[address] [facility] [address]: Alton Beck MD REQ: [id number] RECD: 03/26/16 STATUS: LUBNA KERR DR: Herve Durham MD _ SOURCE: BLOOD,VENO SPDESC: ORDERED: Blood Cult Procedure Result Reported Site Aerobic Culture Bottle Final 03/31/16- 1930 ML No Growth Day 5 Anaerobic Culture Bottle Final 03/31/16- 1930 ML No Growth Day 5 * ML - MAIN LAB ([facility]) . END OF REPORT * ML=Testing performed at Main Lab DEPARTMENT OF PATHOLOGY, [address] [place] [address] Darion Covington M.D. Director [facility] # [id number] 22 SPOKE TO PIPER FOR RECOLLECT 23 [...] be used for medical purposes only. 27 [facility] Severe Sepsis and Septic Shock Management Bundle Measure requires all lactic acids initially measuring >2.0 mmol/L be repeated. 28 SEE RESULT BELOW Name: JHONY GARCIA : [address]: Alfonso Chen MD Acct: [id number] Unit: [id number] AGE: 21 Location: ED Re03/20/16 SEX: F Status: DEP ER SPEC: [id number] OSIRIS: 03/20/[address]: Alfonso Chen MD REQ: [id number] RECD: 03/20/16 STATUS: LUBNA KERR DR: Herve Durham MD _ SOURCE: URINE SPDESC: ORDERED: Urine Culture Procedure Result Reported Site Urine Culture Final 03/21/16- 1616 ML No growth of clinically significant organisms * ML - MAIN LAB ([facility]) . END OF REPORT * ML=Testing performed at Main Lab DEPARTMENT OF PATHOLOGY, [address] [place] [address] Darion Covington M.D. Director [facility] # [id number] 29 SEE RESULT BELOW Name: JHONY GARCIA : [address]: Alfonso Chen MD Acct: [id number] Unit: [id number] AGE: 21 Location: ED Re03/20/16 SEX: F Status: DEP ER SPEC: [id number] OSIRIS: 03/20/[address]: Alfonso Chen MD REQ: [id number] RECD: 03/20/16 STATUS: LUBNA KERR DR: Herve Durham MD _ SOURCE: BLOOD,VENO SPDESC: ORDERED: Blood Cult COMMENTS: Verbal to [id number] by JOSHUA at 0924 on 03/22/16. Results read back accurately. Procedure Result Reported Site Aerobic Culture Bottle Final 04/28/16- 1218 ML Aerobic Bottle Gram Stain Gram Positive Bacilli Organism 1 CORYNEBACTERIUM SPECIES - Sensitivity not performed; probable contaminant. If further testing is required, please call microbiology laboratory. Anaerobic Culture Bottle Final 03/25/16- 1929 ML No Growth Day 5 * ML - MAIN LAB ([facility]) . END OF REPORT * ML=Testing performed at Main Lab DEPARTMENT OF PATHOLOGY, [address] [place] [address] Darion Covington M.D. Director [facility] # [id number] 30 This test detects intact HCG only [...] medical purposes only. 33 RUN DATE: 11/19/13 [facility] LAB LIVE PAGE 1 RUN TIME: [address], [place] [address] Specimen Inquiry Name: JHONY GARCIA : [address]: Herve Torres MD Acct: [id number] Unit: [id number] AGE: 18 Location: ED Re11/17/13 SEX: F Status: DEP ER SPEC: [id number] OSIRIS: 11/17/[address]: Wanda LIN REQ: [id number] RECD: 11/17/13 STATUS: LUBNA KERR DR: [facility] Herve Durham MD _ SOURCE: URINE SPDESC: ORDERED: Urine Culture Procedure Result Verified Site Urine Culture Final 11/19/13- 1023 ML Organism 1 NORMAL GLEN [place] Count 25-50,000 (Moderate) CFU/ML END OF REPORT * ML=Testing performed at Main Lab DEPARTMENT OF PATHOLOGY, [address] [place] [address] Darion Covington M.D. Director [facility] Permit #[id number] 34 This test detects intact HCG only [...] has been shown to interfere with the Jendrclaraik-Friesland method for measuring total bilirubin. Samples from [...] are 25-80 Test Performed by: [facility] Dpt of Lab Med and Pathology [address] [place] [address] Psychology Clinician: Jose Begum III, M.D. 57 The detection [...] from confidential records which are protected by [place] law. State law prohibits you from making further disclosure of this information without the specific written consent of the person to whom it pertains, or as otherwise permitted by law. Any unauthorized further disclosure in violation of state law may result in a fine or senior living sentence or both. General authorization for the [...] may result in a fine or a senior living sentence. . 61 REFERENCE RANGE LESS THAN 10 MIU/ML NONIMMUNE . Procedures Date Code Description Status 05/28/2017 09875 X-Ray Foot Three Views Completed 12/31/2013 14057 SC/Im Injections Completed 09/27/2013 11256 SC/Im Injections Completed 06/28/2013 05201 SC/Im Injections Completed 04/01/2013 84213 Visual Acuity Screening Test Completed 12/01/2012 85553 SC/Im Injections Completed 09/02/2012 15079 SC/Im Injections Completed 04/23/2012 51744 SC/Im Injections Completed 03/31/2012 47139 Visual Acuity Screening Test Completed 09/30/2011 00999 X-Ray Ankle Three Views Completed 08/23/2011 32539 X-Ray Wrist Three Views Completed 11/05/2010 66551 X-Ray Chest Single Completed 11/05/2010 64908 Anoscopy Diagnostic Completed 06/01/2010 54227 X-Ray Toe(S) Two Views Completed 03/22/2010 54066 Visual Acuity Screening Test Completed 09/23/2006 06986 allergy skin testing Completed 09/23/2006 66991 Bronchospasm Evaluation Pre & Post Completed 03/11/2006 11382 Spirometry Completed Encounters Type Date Location Provider [...] Surveillance v25.09 Contraceptive Management Other V58.69 Medications Interior Design Project Manager (Current) Use Encounter Office Visit 09/08/2013 10:00a [...] V25.02 Contraceptive P.A. Measures Other Initiation V25.04 Scanning Tech & Instruct In Natural Family Planning To [...] Mention Of Hyperactivity 300.4 Dysthymic Disorder V06.1 Toafuexzer-Uanqtkd-Xyjqpzvv Combined (DTaP) V07.2 Prophylactic Immunotherapy Office Visit [...] Bernardo Manuel M.D.J06.9 Acute upper respiratory infection, vjuyqjwydtzV22.9 Acute pharyngitis, unspecifiedComments:Rapid strep (-). Await Cx. Suspect viral etiology. Advised symptomatic care for now. RTO prn
[2019-03-21 13:38] VITALS: BP 146/110
--- NOTE | 2019-03-21 14:10 | UC ---
Complaint Female HPI - HPI Summary HPI Summary: LEFT WITHOUT BEING SEEN - History Of Current Complaint Chief Complaint: UCBackPain Stated Complaint: BACK PAIN Time Seen by Provider: 03/21/19 14:02 Hx Obtained From: Patient Hx Last Menstrual Period: nexplanon ?: No - nexplanon Pain Intensity: 10 - Allergies/Home Medications Allergies/Adverse Reactions: Allergies Allergy/AdvReac Type Severity Reaction Status Date / Time oxycodone Allergy Altered Verified 03/21/19 13:38 Mental Status PMH/Surg Hx/FS Hx/Imm Hx - Surgical History Surgical History: None - Family History Known Family History: Positive: Unknown - unknown due to adoption - Social History Alcohol Use: Occasionally Substance Use Type: Marijuana Smoking Status (MU): Former Smoker - Immunization History Most Recent Tetanus Shot: w/ routine immunizations Vaccination Up to Date: Yes Review of Systems All Other Systems Reviewed And Are Negative: Yes Constitutional: Negative: Fever Physical Exam Vital Signs: Initial Vital Signs Temp 99 F 03/21/19 13:34 Pulse 83 03/21/19 13:34 Resp 18 03/21/19 13:34 BP 146/110 03/21/19 13:34 Pulse Ox 100 03/21/19 13:34 Complaint Female Dx - Course Course Of Treatment: LEFT WITHOUT BEING SEEN. - Differential Dx/Diagnosis Provider Diagnosis: Patient left without being seen Discharge - Sign-Out/Discharge Documenting (check all that apply): Patient Departure All imaging exams completed and their final reports reviewed: No Studies - Discharge Plan Condition: Good Disposition: LEFT WITHOUT BEING SEEN Referrals: Denise Apodaca PA [Primary Care Provider] - - Billing Disposition and Condition Condition: GOOD Disposition: Left Without Being Seen - Attestation Statements Provider Attestation: This patient was not seen by me. I was available to consult. ANGELINE
== END 2019-03-21 14:45 | disposition left against medical advice (07) ==
LOC: UCEAST 13:16
DX: Z53.8 Procedure and treatment not carried out for other reasons (principal)
CPT/HCPCS: 81002; 81025; 87086

== ENCOUNTER 2019-09-06 10:22 | Emergency (ER) | payer BC, MEDICAID ==
--- NOTE | 2019-09-06 11:00 | ED ---
GI/ HPI - HPI Summary HPI Summary: Pt. is a 24 y.o female who presents to the ER for ongoing RLQ pain and intermittent vaginal pain. Pt states she had a new sexual partner 3 weeks ago and is concerned she has an STI. Denies fever, vomiting, vaginal discharge. Currently having her menstrual cycle. Pt. notes RLQ pain has been going on for a few months. Moving makes pain worse. Sxs are mild-moderate in severity. No current modifying factors. - History of Current Complaint Chief Complaint: EDGeneral Time Seen by Provider: 09/06/19 10:36 Stated Complaint: GENERAL Hx Obtained From: Patient Hx Last Menstrual Period: nexplanon Pain Intensity: 2 - Allergy/Home Medications Allergies/Adverse Reactions: Allergies Allergy/AdvReac Type Severity Reaction Status Date / Time oxycodone Allergy Altered Verified 09/06/19 10:28 Mental Status Home Medications: Home Medications NK [No Home Medications Reported] 09/06/19 [History Confirmed 09/06/19] PMH/Surg Hx/FS Hx/Imm Hx Previously Healthy: Yes Endocrine/Hematology History: Denies: Hx Diabetes Cardiovascular History: Reports: Hx Congenital Heart Disease Denies: Hx Hypertension History: Denies: Hx Renal Disease Sensory History: Reports: Hx Contacts or Glasses Opthamlomology History: Reports: Hx Contacts or Glasses Psychiatric History: Reports: Hx Anxiety, Hx Depression, Hx Post Traumatic Stress Disorder, Hx Inpatient Treatment, Other Psychiatric Issues/Disorders - reactive attachment disorder and unspecified mood disorders Denies: Hx Eating Disorder, Hx of Violent Episodes Against Others - Immunization History Date of Tetanus Vaccine: Unk Date of Influenza Vaccine: None Immunizations Up to Date: Yes Infectious Disease History: No Infectious Disease History: Reports: History Other Infectious Disease - +TB TEST Denies: Traveled Outside the [place] in Last 30 Days - Family History Known Family History: Positive: Unknown - unknown due to adoption, Non- Contributory - Social History Occupation: Employed Full-time Lives: Alone Alcohol Use: Rare Hx Substance Use: Yes Substance Use Type: Reports: Marijuana Substance Use Comment - Amount & Last Used: yesterday Hx Tobacco Use: Yes Smoking Status (MU): Former Smoker Review of Systems Constitutional: Negative Negative: Fever ENT: Negative Cardiovascular: Negative Respiratory: Negative Positive: Abdominal Pain, Nausea. Negative: Vomiting, Diarrhea Genitourinary: Other - vaginal pain Skin: Negative Negative: Rash All Other Systems Reviewed And Are Negative: Yes Physical Exam Triage Information Reviewed: Yes Vital Signs On Initial Exam: Initial Vitals Temp Pulse Resp BP Pulse Ox 97.3 F 81 19 112/66 100 09/06/19 10:23 09/06/19 10:23 09/06/19 10:23 09/06/19 10:23 09/06/19 10:23 Vital Signs Reviewed: Yes Appearance: Positive: Well-Appearing - Pt. sitting up in bed in NAD. Skin: Positive: Warm, Dry Head/Face: Positive: Normal Head/Face Inspection Eyes: Positive: Normal, EOMI Neck: Positive: Supple Respiratory/Lung Sounds: Positive: Clear to Auscultation, Breath Sounds Present Cardiovascular: Positive: Normal, RRR Abdomen Description: Positive: Other: - Abd. soft with mild pain to RLQ. No rebound or guarding. No CVA tenderness. Pelvic Exam: Positive: Other - Exam performed with commercial service technicianKomal lindquist. External genitalia unremarkable. Speculum reveals mild bright red bleeding from cervix. CMT. Neurological: Positive: Normal, CN Intact II-III Psychiatric: Positive: Affect/Mood Appropriate Procedures - Sedation Patient Received Moderate/Deep Sedation with Procedure: No Diagnostics - Vital Signs Vital Signs Temp Pulse Resp BP Pulse Ox 09/06/19 10:23 97.3 F 81 19 112/66 100 - Laboratory Result Diagrams: 09/06/19 11:16 09/06/19 11:16 Lab Statement: Any lab studies that have been ordered have been reviewed, and results considered in the medical decision making process. GIGU Course/Dx - Course Course Of Treatment: Pt. with CMT and lower abd. pain. Afebrile and well appearing. Labs unremarkable including normal WBC and CRP. Vaginal cultures pending. Pt. would like prophylactic treated and was tx with rocephin and azithromycin. Will f.u with SENIOR ENERGY TRADER. Will call if cultures positive. Will return to er if sxs change or worsen. - Diagnoses Differential Diagnoses - Female: STD, Tubo-Ovarian Abscess, Urinary Tract Infection, Vaginitis Provider Diagnoses: Pelvic pain, Concern about STD in female without diagnosis Discharge ED - Sign-Out/Discharge Documenting (check all that apply): Patient Departure - Discharge Plan Condition: Good Disposition: HOME Patient Education Materials: Pelvic Pain in Women (ED) Forms: *Work Release Referrals: Denise Apodaca PA [Primary Care Provider] - Dagoberto Sheikh JR, DO [Doctor of Osteopathy] - Additional Instructions: Please call the GEOSPATIAL ANALYST office today to schedule a follow up appointment Will call if cultures are positive Tylenol or Motrin for pain as directed Always use sexual protection such as condoms Return to ER if symptoms change or worsen - Billing Disposition and Condition Condition: GOOD Disposition: Home
[2019-09-06 11:27] LABS: Urine Appearance Cloudy; Urine Bilirubin Negative (Negative); Urine Blood 3+ (Negative); Urine Color Yellow; Urine Glucose Negative (Negative); Urine Ketones Negative (Negative); Urine Nitrite Negative (Negative); Urine Protein Negative (Negative); Urine Specific Gravity 1.012 (1.010-1.030); Urine Urobilinogen Negative (Negative)
[2019-09-06 11:31] LABS: Urine Bacteria Absent (Absent); Urine Red Blood Cell 3+(>10/hpf) (Absent); Urine Squamous Epithelial Cell Present (Absent); Urine White Blood Cell 2+(11-20/hpf) (Absent)
[2019-09-06 11:45] LABS: ABS Eosinophils 0.1 10^3/ul (0-0.6); ABS Monocytes 0.4 10^3/ul (0-0.8); ABS Neutrophils 5.6 10^3/ul (1.5-7.7); Eosinophil % 0.8 %; Hematocrit 40 % (35-47); Hemoglobin 13.3 g/dL (12.0-16.0); Mean Corpuscular HGB Conc 34 g/dL (31-36); Mean Corpuscular Hemoglobin 31 pg (27-31); Mean Corpuscular Volume 92 fL (80-97); Mean Platelet Volume 9.8 fL (7.4-10.4); Nucleated Red Blood Cells % 0.1; Platelet Count 214 10^3/uL (150-450); Red Blood Count 4.31 10^6 /uL (3.70-4.87); Red Cell Distribution Width 13 % (10-15); White Blood Count 8.2 10^3/uL (3.5-10.8)
[2019-09-06 11:50] LABS: Anion Gap 6 mmol/L (2-11); Blood Urea Nitrogen 8 mg/dL (6-24); CO2 Carbon Dioxide 27 mmol/L (22-32); Calcium 9.5 mg/dL (8.6-10.3); Chloride 106 mmol/L (101-111); EGFR African American 108.5 (>60); EGFR Non-African American 89.7 (>60); Glucose 86 mg/dL (70-100); Potassium 3.8 mmol/L (3.5-5.0); Sodium 139 mmol/L (135-145)
[2019-09-06 11:57] LABS: HCG Pregnancy < 0.60 mIU/mL
[2019-09-06] MEDS ORDERED: cefTRIAXone VIAL(*) 250 MG VIAL IM ONE (12:23)
[2019-09-06] MEDS ORDERED: Lidocaine 1% MPF ** 5 ML VIAL IM ONE (12:23)
[2019-09-06] MEDS ORDERED: Azithromycin TAB* 250 MG PO ONE (12:23)
[2019-09-06 12:53] VITALS: BP 127/69
[2019-09-07 12:48] LABS: Trichomonas vag NAA Female Negative (Negative)
[2019-09-07 13:08] LABS: Chlamydia trachomatis NAA Positive (Negative); Neisseria gonorrhoeae (GC) NAA Negative (Negative)
--- NOTE | 2019-09-07 14:50 | ED ---
Imaging and Labs Follow Up Follow Up Type: Labs/Cultures Labs/Culture Result: Positive chlamydia. Patient Communication/Plan: I called and spoke with pt. today at 1455 and discussed results. Pt. treated with rocephin and azithromycin in ED. Advised pt. all sexual partners need to be treated. Pt. understands and agrees with plan. Provider Diagnoses: Pelvic pain, Concern about STD in female without diagnosis
== END 2019-09-06 12:34 | disposition home or self-care (01) ==
LOC: ED 10:22
DX: R10.2 Pelvic and perineal pain (principal); R10.31 Right lower quadrant pain; A74.9 Chlamydial infection, unspecified; Z88.5 Allergy status to narcotic agent; Z87.891 Personal history of nicotine dependence
CPT/HCPCS: 36415; 80048; 81003; 81015; 84702; 85025; 87077; 87086; 87480; 87491; 87510; 87591; 87661; 96372; 99282; A9270-GY; J0696

== ENCOUNTER 2019-12-07 10:17 | Emergency (ER) | payer SELFPAY ==
--- NOTE | 2019-12-07 10:51 | ED ---
GI/ HPI - HPI Summary HPI Summary: Pt. is a 24 y.o female who presents to the ER for dysuria x several days. Pt. notes she contracted chlamydia in August and was treated with azithromycin and rocephin. Pt. states she just found out that her SO was never treated. Pt. notes she started with lower pelvic pain and dysuria. Denies fevers. Notes irregular vaginal bleeding as well. Sxs are mild in severity. No current modifying factors. - History of Current Complaint Chief Complaint: EDUrogenitalProblems Time Seen by Provider: 12/07/19 10:37 Stated Complaint: POSS STD PER PT Hx Obtained From: Patient Hx Last Menstrual Period: nexplanon Pain Intensity: 1 - Allergy/Home Medications Allergies/Adverse Reactions: Allergies Allergy/AdvReac Type Severity Reaction Status Date / Time oxycodone Allergy Altered Verified 09/06/19 10:28 Mental Status Home Medications: Home Medications Etonogestrel [Nexplanon] 68 mg SUBCUT ONCE 12/07/19 [History Confirmed 12/07/19] PMH/Surg Hx/FS Hx/Imm Hx Previously Healthy: Yes Endocrine/Hematology History: Denies: Hx Diabetes Cardiovascular History: Reports: Hx Congenital Heart Disease Denies: Hx Hypertension History: Denies: Hx Renal Disease Sensory History: Reports: Hx Contacts or Glasses Opthamlomology History: Reports: Hx Contacts or Glasses Psychiatric History: Reports: Hx Anxiety, Hx Depression, Hx Post Traumatic Stress Disorder, Hx Inpatient Treatment, Other Psychiatric Issues/Disorders - reactive attachment disorder and unspecified mood disorders Denies: Hx Eating Disorder, Hx of Violent Episodes Against Others - Immunization History Date of Tetanus Vaccine: Unk Date of Influenza Vaccine: None Infectious Disease History: No Infectious Disease History: Reports: History Other Infectious Disease - +TB TEST Denies: Traveled Outside the [place] in Last 30 Days - Family History Known Family History: Positive: Unknown - unknown due to adoption, Non- Contributory - Social History Occupation: Unemployed Lives: With Family Alcohol Use: Rare Hx Substance Use: Yes Substance Use Type: Reports: Marijuana Substance Use Comment - Amount & Last Used: yesterday Hx Tobacco Use: Yes Smoking Status (MU): Former Smoker Review of Systems Constitutional: Negative Negative: Fever Positive: Abdominal Pain Positive: dysuria All Other Systems Reviewed And Are Negative: Yes Physical Exam Triage Information Reviewed: Yes Vital Signs On Initial Exam: Initial Vitals Temp Pulse Resp BP Pulse Ox 97.5 F 78 18 133/77 99 12/07/19 10:18 12/07/19 10:18 12/07/19 10:18 12/07/19 10:18 12/07/19 10:18 Vital Signs Reviewed: Yes Appearance: Positive: Well-Appearing - Pt. sitting on bed in NAD. Skin: Positive: Warm, Dry Head/Face: Positive: Normal Head/Face Inspection Eyes: Positive: Normal, EOMI Neck: Positive: Supple Respiratory/Lung Sounds: Positive: Clear to Auscultation, Breath Sounds Present Cardiovascular: Positive: Normal, RRR Abdomen Description: Positive: Other: - Abd. is soft with minimal lower abd. tenderness. No rebound or guarding. Neurological: Positive: Normal, CN Intact II-III Psychiatric: Positive: Affect/Mood Appropriate Procedures - Sedation Patient Received Moderate/Deep Sedation with Procedure: No Diagnostics - Vital Signs Vital Signs Temp Pulse Resp BP Pulse Ox 12/07/19 10:18 97.5 F 78 18 133/77 99 - Laboratory Lab Statement: Any lab studies that have been ordered have been reviewed, and results considered in the medical decision making process. GIGU Course/Dx - Course Assessment/Plan: Pt. with exposure to chlamydia. Afebrile with benign exam. Negative preg. Treated with azith and rocephin. Will fu with PUBLICATION SPECIALIST. To avoid sexual interaction until sxs resolved. All sexual partners need to be tested and treated. Pt. understands and agrees with plan. - Diagnoses Differential Diagnoses - Female: Ectopic , , STD Provider Diagnoses: STI (sexually transmitted infection) - Critical Care Time Critical Care Statement: Critical care time is provided exclusive of any time spent performing procedures. Discharge ED - Sign-Out/Discharge Documenting (check all that apply): Patient Departure - Discharge Plan Condition: Good Disposition: HOME Patient Education Materials: Sexually Transmitted Diseases (ED) Referrals: [facility] [Outside] Sg Jenkins MD [Medical Doctor] - Additional Instructions: Schedule a follow up appointment with Dr. Jenkins, PUBLICATION SPECIALIST All sexual partners need to be tested and treated Always use sexual protection such as condoms Avoid sexual contact until symptoms resolve Return to ER for fever, increased pain or if concerned - Billing Disposition and Condition Condition: GOOD Disposition: Home
[2019-12-07 11:18] LABS: Urine Appearance Cloudy; Urine Bacteria Absent (Absent); Urine Bilirubin Negative (Negative); Urine Blood Negative (Negative); Urine Color Yellow; Urine Glucose Negative (Negative); Urine Ketones Negative (Negative); Urine Nitrite Negative (Negative); Urine Protein Negative (Negative); Urine Red Blood Cell 1+(3-5/hpf) (Absent); Urine Squamous Epithelial Cell Present (Absent); Urine Urobilinogen Negative (Negative); Urine White Blood Cell 3+(>20/hpf) (Absent)
[2019-12-07] MEDS ORDERED: Lidocaine 1% MPF ** 5 ML VIAL IM ONE (11:22)
[2019-12-07] MEDS ORDERED: Azithromycin TAB* 250 MG PO ONE (11:22)
[2019-12-07] MEDS ORDERED: cefTRIAXone VIAL(*) 250 MG VIAL IM ONE (11:22)
[2019-12-07 12:10] VITALS: BP 109/64
[2019-12-08 12:57] LABS: Chlamydia trachomatis NAA Negative (Negative); Neisseria gonorrhoeae (GC) NAA Negative (Negative)
--- NOTE | 2019-12-09 05:42 | ED ---
Imaging and Labs Follow Up Follow Up Type: Labs/Cultures Labs/Culture Result: Urine Culture shows Strep group B 50-75,000. Normal abdullahi 25-50,000. Patient Communication/Plan: Pt treated for STI. Awaiting sensitivity reports. Pt was to F/U with ICT ACCOUNT MANAGER. Provider Diagnoses: STI (sexually transmitted infection)
== END 2019-12-07 12:09 | disposition home or self-care (01) ==
LOC: ED 10:17
DX: Z11.3 Encounter for screening for infections with a predominantly sexual mode of transmission (principal); R10.9 Unspecified abdominal pain; R30.0 Dysuria; Z87.891 Personal history of nicotine dependence; F41.9 Anxiety disorder, unspecified; F32.9 Major depressive disorder, single episode, unspecified; Z88.6 Allergy status to analgesic agent
CPT/HCPCS: 36415; 81003; 81015; 84702; 87077; 87086; 87491; 87591; 99282; A9270-GY; J0696

== ENCOUNTER 2024-01-13 06:07 | Inpatient (IN) ==
[~2024-01-13 06:07] MED LIST: NS 0.45% 1000 ml BAG 1,000 ML IV SCH; Naloxone 0.4 mg VIAL 0.4 mg/ml 1 ml VIAL IV PRN
[2024-01-13] MEDS ORDERED: Scopolamine 1 mg/72hr PATCH ONE (06:36)
[2024-01-13] MEDS ORDERED: ceFAZolin *3* GM in NS PREMIX 3 GM/100 ML BAG IV ONE (06:36)
[2024-01-13] MEDS ORDERED: Buffered Lidocaine 1% SYRIN 1 ml ONE (06:36)
[2024-01-13] MEDS ORDERED: Heparin 5000 UNITS/ML 1 mL VIAL ONE (06:36)
[2024-01-13] MEDS ORDERED: Methylene Blue 1% (ANTIDOTE) 10 MG/ML 10 ML SDV VIAL IVPB ONE (06:56)
[2024-01-13] MEDS ORDERED: Bupivacaine 0.25% EPI 200,000 30 ML SDV ONE (06:57)
[2024-01-13 07:07] LABS: Rapid COVID-19 Molecular Undetected (Undetected)
[2024-01-13] MEDS: Lactated Ringers 1000 ml BAG 1,000 ML IV SCH ×2 (07:19→12:30)
[2024-01-13] MEDS ORDERED: Propofol 10 MG/ML 20 ML BTL ONE (07:20)
[2024-01-13] MEDS ORDERED: Lidocaine 2% PF 5 ML VIAL ONE (07:20)
[2024-01-13] MEDS ORDERED: fentaNYL 250 mcg/5 ml 50 MCG/ML 5 ml VIAL (250 MCG) ONE (07:21)
[2024-01-13] MEDS ORDERED: Midazolam 2 mg/2 ml VIAL 1 mg/ml 2 ml VIAL (2 mg) ONE (07:21)
[2024-01-13] MEDS ORDERED: Rocuronium 50 mg VIAL 10 mg/ml 5 ml VIAL (50 mg) ONE ×2 (07:22→11:35)
[2024-01-13] MEDS ORDERED: Ondansetron 4 mg VIAL 2 MG/ML 2 ml VIAL ONE ×3 (08:15→12:59)
[2024-01-13] MEDS ORDERED: Dexamethasone IV 4 MG/ML VIAL 1 ml VIAL ONE ×2 (08:15→12:59)
[2024-01-13] MEDS ORDERED: HYDROmorphone 0.5 MG/0.5 ML SYRINGE ONE (08:28)
[2024-01-13] MEDS ORDERED: Ondansetron 4 mg VIAL 2 MG/ML 2 ml VIAL IV PRN (10:06)
[2024-01-13] MEDS ORDERED: Albuterol HFA INHALER 8 gm MDI INH PRN (10:14)
[2024-01-13] MEDS ORDERED: HYDROmorphone 1 MG/1 ML SYRINGE ONE (11:13)
[2024-01-13] MEDS: Ondansetron 4 mg VIAL 2 MG/ML 2 ml VIAL IV PRN (11:14)
[2024-01-13] MEDS: HYDROmorphone 1 MG/1 ML SYRINGE IV SLOW PU PRN ×2 (11:15→14:27)
[2024-01-13] MEDS: Acetaminophen IV 1 GM/100ML 1,000 MG/100 ML BAG IV ONE (11:48)
[2024-01-13] MEDS: Buffered Lidocaine 1% SYRIN 1 ml INTRADERM ONE (11:48)
[2024-01-13] MEDS ORDERED: fentaNYL 100 mcg/2 ml 50 MCG/ML VIAL ONE (11:54)
[2024-01-13] MEDS ORDERED: Phenylephrine 40 mcg/mL 10mL (400mcg) SYRINGE ONE (12:17)
[2024-01-13] MEDS: Heparin 5000 UNITS/ML 1 mL VIAL SUBCUT SCH (13:03)
[2024-01-13] MEDS: Famotidine IV 10 MG/ML 2 ml VIAL (20 mg) IV SLOW PU SCH (22:04)
[2024-01-13] MEDS: HYDROmorphone 0.5 MG/0.5 ML SYRINGE IV SLOW PU PRN (22:04)
[2024-01-14] MEDS: D5W 1/2 NS KCl 20 meq 1000 ml 1,000 ML IV SCH (12:07)
[2024-01-14] MEDS: HYDROcodone/ACET. 7.5/325 LIQ 15 ML UDC PO PRN (12:08)
[2024-01-14 14:27] VITALS: BP 108/65
== END 2024-01-14 14:50 | disposition home or self-care (01) | DRG 403 ==
LOC: AA 06:07 → SSU 10:09 → EDSTATUS 10:15
PROVIDERS: ADMIT Surgery; ATTEND Surgery